=== PATIENT | male | born 1950 | race African-American/Black ===

== ENCOUNTER → 2017-08-04 | Outpatient (CLI) | payer MEDICARE | LOC: OD 11:40 | PROVIDERS: ATTEND Urology | DX: Z53.9 Procedure and treatment not carried out, unspecified reason (principal) ==

== ENCOUNTER 2017-11-05 15:01 | Emergency (ER) | payer MEDICARE ==
--- NOTE | 2017-11-05 17:01 | ER Document Report ---
ED GI/ - General Chief Complaint: Problem with Urinary Catheter Stated Complaint: CATHETER ISSUES Time Seen by Provider: 11/05/17 16:50 Mode of Arrival: Ambulatory Information source: Patient TRAVEL OUTSIDE OF THE [place] IN LAST 30 DAYS: No - HPI Patient complains to provider of: Other - Urinary leg bag leaking Onset: Just prior to arrival Notes: 11/05/17 16:57 Patient arrives with complaints of urinary bag leaking. The patient has bilateral nephrostomy tubes which she has had for several months. States that the left bag is leaking where the tube enters the bag at the top. He denies any fevers. He denies any pain. He denies any abdominal pain. He denies any nausea, vomiting, diarrhea. No chest pain or shortness of breath. No rash. He has no other complaints other than needing the bags were placed. - Related Data Allergies/Adverse Reactions: procaine [From Novocain] Adverse Reaction (Verified 11/05/17 15:05) Past Medical History - Social History Smoking Status: Unknown if Ever Smoked Family History: Reviewed & Not Pertinent - Past Medical History Cardiac Medical History: Reports: Hx Hypertension Renal/ Medical History: Denies: Hx Peritoneal Dialysis Review of Systems - Review of Systems -: Yes All other systems reviewed and negative Physical Exam - Vital signs Vitals: Temp Pulse Resp BP Pulse Ox 98.0 F 58 L 15 116/55 L 100 11/05/17 15:20 11/05/17 15:20 11/05/17 15:20 11/05/17 15:20 11/05/17 15:20 - Notes Notes: GENERAL: alert, cooperative, nontoxic, no distress. HEAD: normocephalic, atraumatic EYES: conjunctiva pink without discharge, no external redness or swelling. EARS: no external swelling, no external redness NOSE: atraumatic, no external swelling MOUTH/THROAT: mucous membranes moist and pink, posterior pharynx without erythema, swelling, exudate. No trismus or drooling. NECK: soft, supple, full range of motion, no meningismus. CHEST: no distress, lungs clear and equal throughout. No wheezing, rales, rhonchi. CARDIAC: regular rate and rhythm, no murmur, normal capillary refill, normal pulses. No peripheral edema noted. ABDOMEN: Soft, nontender. BACK: full range of motion, no CVA tenderness. Bilateral nephrostomy tubes without erythema around the insertion sites. No tenderness. No drainage. EXTREMITIES: full range of motion of all extremities. No redness, no swelling. NEURO: alert and oriented x 3, no focal deficits, full range of motion of all extremities. PYSCH: appropriate mood, affect. Patient is cooperative. SKIN: pink, warm, dry, no rash. : The left nephrostomy tube is noted to be leaking where the tubing leading from the not nephrostomy tube hookup to the leg bag itself is cracked. Course - Re-evaluation Re-evalutation: 11/05/17 17:25 Patient is nontoxic appearing with stable vitals. The patient arrives with nephrostomy tube leg bag that is leaking. We are able to replace his nephrostomy tube leg bag with a new leg bag. We instructed him that this is a temporary measure as we do not have the exact leg bag with the same connection he has that connects at the nephrostomy tube itself, but were able to give him a new bag that was secured to at [facility] The patient's emergency department workup and current diagnosis were explained to the patient and or family. He was instructed to follow-up with his magazine journalist at the next available appointment that he should follow-up sooner for fever, redness, pain, leaking, any further concerns. St prevent it from leaking until he can see his magazine journalist to obtain the right bag. Again the patient is nontoxic with no signs of infection. His nephrostomy tube sites look well. Follow-up instructions were provided. Medications if prescribed were discussed. Instructions for when to return to the emergency department including specific worrisome symptoms were discussed with the patient and/or family. Patient will be discharged home at this time. - Vital Signs Vital signs: Temp Pulse Resp BP Pulse Ox 98.0 F 58 L 15 116/55 L 100 11/05/17 15:20 11/05/17 15:20 11/05/17 15:20 11/05/17 15:20 11/05/17 15:20 Discharge - Discharge Clinical Impression: Urinary catheter (Hook) change required Condition: Stable Disposition: HOME, SELF-CARE Instructions: Hook Catheter Care ([facility]) Additional Instructions: Follow-up with your magazine journalist at the next available appointment. Follow-up sooner for leaking, fever, redness or pain around your insertion sites, any further concerns. Forms: Smoking Cessation Education
[2017-11-05 17:38] VITALS: BP 145/63
== END 2017-11-05 17:35 | disposition home or self-care (01) ==
LOC: ER 15:01
DX: T83.9XXA Unspecified complication of genitourinary prosthetic device, implant and graft, initial encounter (principal)
CPT/HCPCS: 99282

== ENCOUNTER 2017-11-11 18:32 | Observation (INO) | payer MEDICARE, MEDICAID ==
[2017-11-11] MEDS ORDERED: LIDOCAINE 1% INJ-PF (10 MG/ML) 30 ML SDV INJ ONE (19:59)
--- NOTE | 2017-11-11 19:59 | ER Document Report ---
ED Medical Screen (RME) - General Chief Complaint: Syncope Stated Complaint: SYNCOPAL EPISODE/HEAD INJURY Time Seen by Provider: 11/11/17 19:56 Mode of Arrival: Wheelchair Information source: Patient Notes: Patient states that he was standing up, got hot and then had a syncopal episode. Patient reports that he hit his head on the counter in his ribs on the floor. Syncopal episode was witnessed by family. Patient complains of dyspnea and pain with inspiration since the fall. Patient was laceration to right brow area. Patient reports last tetanus immunization was 4 years ago. Patient is currently receiving chemotherapy for prostate cancer. hx: Hypertension, prostate cancer I have greeted and performed a rapid initial assessment of this patient. A comprehensive ED assessment and evaluation of the patient, analysis of test results and completion of the medical decision making process will be conducted by additional ED providers. TRAVEL OUTSIDE OF THE [place] IN LAST 30 DAYS: No - Related Data Allergies/Adverse Reactions: procaine [From Novocain] Adverse Reaction (Verified 11/11/17 18:35) Past Medical History - Past Medical History Cardiac Medical History: Reports: Hx Hypertension Renal/ Medical History: Denies: Hx Peritoneal Dialysis Physical Exam - Vital signs Vitals: Temp Pulse Resp BP Pulse Ox 97.6 F 66 20 125/71 100 11/11/17 18:39 11/11/17 18:39 11/11/17 18:39 11/11/17 18:39 11/11/17 18:39 - Neurological Neuro grossly intact: Yes [place] Coma Scale Eye Opening: Spontaneous [place] Coma Scale Verbal: Oriented [place] Coma Scale Motor: Obeys Commands [place] Coma Scale Total: 15 - Skin Skin irregularity: Laceration - Right brow Course - Vital Signs Vital signs: Temp Pulse Resp BP Pulse Ox 97.6 F 66 20 125/71 100 11/11/17 18:39 11/11/17 18:39 11/11/17 18:39 11/11/17 18:39 11/11/17 18:39
--- NOTE | 2017-11-11 20:43 | RADIOLOGY REPORT (SQ) ---
EXAM DESCRIPTION: CT HEAD WITHOUT COMPLETED DATE/TIME: 11/11/2017 8:35 pm REASON FOR STUDY: syncope, GALEANA, facial lac r brow COMPARISON: None. TECHNIQUE: Axial images acquired through the brain without intravenous contrast. Images reviewed wi th bone, brain and subdural windows. Images stored on PACS. All CT scanners at this facility use dose modulation, iterative reconstruction, and/or weight based d osing when appropriate to reduce radiation dose to as low as reasonably achievable (ALARA). [facility]: Dose Right [facility]: CareDose [facility]: Dose Right [facility]: Teradose 4D [facility]: [employer] RADIATION DOSE: CT Rad equipment meets quality standard of care and radiation dose reduction techniq ues were employed. CTDIvol: 64.6 mGy. DLP: 1034 mGy-cm. mGy. LIMITATIONS: None. FINDINGS: VENTRICLES: Normal size and contour. CEREBRUM: No masses. No hemorrhage. No midline shift. No evidence for acute infarction. Normal gra y/white matter differentiation. No areas of low density in the white matter. CEREBELLUM: No masses. No hemorrhage. No alteration of density. No evidence for acute infarction. EXTRAAXIAL SPACES: No fluid collections. No masses. ORBITS AND GLOBE: No intra- or extraconal masses. Normal contour of globe without masses. CALVARIUM: No fracture. PARANASAL SINUSES: No fluid or mucosal thickening. SOFT TISSUES: No mass or hematoma. OTHER: No other significant finding. IMPRESSION: NORMAL BRAIN CT WITHOUT CONTRAST. EVIDENCE OF ACUTE STROKE: NO. COMMENT: Quality ID # 436: Final reports with documentation of one or more dose reduction techniques (e.g., Automated exposure control, adjustment of the mA and/or kV according to patient size, use of iterative reconstruction technique) TECHNICAL DOCUMENTATION: JOB ID: [id number] [employer]- All Rights Reserved
--- NOTE | 2017-11-11 21:04 | RADIOLOGY REPORT (SQ) ---
EXAM DESCRIPTION: CHEST PA/LAT COMPLETED DATE/TIME: 11/11/2017 8:39 pm REASON FOR STUDY: syncope, L lower rib pain COMPARISON: 2013. TECHNIQUE: Frontal and lateral radiographic views of the chest acquired. NUMBER OF VIEWS: Two view. LIMITATIONS: None. FINDINGS: LUNGS AND PLEURA: Lungs generally slightly hyperinflated but otherwise clear. MEDIASTINUM AND HILAR STRUCTURES: No masses or contour abnormalities. HEART AND VASCULAR STRUCTURES: Heart normal size. No evidence for failure. BONES: Increased density. Patchy areas of sclerosis. Any history of renal disease or prostate cance r? HARDWARE: None in the chest. OTHER: No other significant finding. IMPRESSION: Dense patchy bone sclerosis raises the possibility of renal osteodystrophy or osseous me tastatic disease. No acute cardiopulmonary disease. TECHNICAL DOCUMENTATION: JOB ID: [id number] [employer]- All Rights Reserved
[2017-11-11 21:07] LABS: ABSOLUTE BASOPHILS # (AUTO) 0.1 10^3/uL (0.0-0.2); ABSOLUTE LYMPHOCYTES (AUTO) 1.2 10^3/uL (0.5-4.7); ABSOLUTE MONOCYTES (AUTO) 0.1 10^3/uL (0.1-1.4); ABSOLUTE NEUT (AUTO) 3.7 10^3/uL (1.7-8.2); BASOPHILS % (AUTO) 1.1 % (0-2); EOSINOPHILS % (AUTO) 0.2 % (0-6); HEMATOCRIT 33.6 % (37.9-51.0); HEMOGLOBIN 11.1 g/dL (13.5-17.0); LYMPHOCYTES % (AUTO) 24.4 % (13-45); MEAN CORPUSCULAR HEMOGLOBIN 27.3 pg (27.0-33.4); MEAN CORPUSCULAR HGB CONC 32.9 g/dL (32.0-36.0); MEAN CORPUSCULAR VOLUME 83 fl (80-97); MONOCYTES % (AUTO) 1.5 % (3-13); PLATELET COUNT 252 10^3/uL (150-450); RED BLOOD COUNT 4.05 10^6/uL (4.35-5.55); RED CELL DISTRIBUTION WIDTH 16.9 % (11.5-14.0); SEGMENTED NEUTROPHILS % (AUTO) 72.8 % (42-78); TOTAL CELLS COUNTED % (AUTO) 100 %; WHITE BLOOD COUNT 5.1 10^3/uL (4.0-10.5)
--- NOTE | 2017-11-11 21:09 | ER Document Report ---
ED General - General Chief Complaint: Syncope Stated Complaint: SYNCOPAL EPISODE/HEAD INJURY Time Seen by Provider: 11/11/17 19:56 Mode of Arrival: Wheelchair Information source: Patient Notes: This is a 67-year-old man with a history of prostate cancer, obstructive uropathy with bilateral nephrostomy tubes who is his normal state today when he came home. He states he was making coffee, stood up he had a syncopal episode. Patient hit his head and fell on his left side. He presents with a laceration over the right eye as well as left chest wall pain. This episode was observed by his family. They denied any seizure-like activity to EMS. The patient denied any preceding chest pain, shortness of breath, nausea vomiting. Currently in the emergency room, the myers complains of pain to the left ribs. He denies ever having passed out in the past. He states that he felt good today and he was riding his moped to his brother's house. He denies having any pain medicine for the past 2 days (he states he did not need it). He denies any alcohol use. Primary CARE physician: Ora Oliveira Oncologist: Dr. Thacker Urologist: [facility] TRAVEL OUTSIDE OF THE [place] IN LAST 30 DAYS: No - HPI Onset: Just prior to arrival Onset/Duration: Sudden Quality of pain: Dull Severity: Moderate Pain Level: 3 Associated symptoms: Chest pain. denies: Fever, Shortness of breath Exacerbated by: Movement Relieved by: Denies Similar symptoms previously: No Recently seen / treated by doctor: No - Related Data Allergies/Adverse Reactions: procaine [From Novocain] Adverse Reaction (Verified 11/11/17 18:35) Past Medical History - General Information source: Patient - Social History Smoking Status: Current Every Day Smoker Cigarette use (# per day): Yes - Half pack per day Chew tobacco use (# tins/day): No Frequency of alcohol use: None Drug Abuse: Marijuana Lives with: Family Family History: Reviewed & Not Pertinent Patient has suicidal ideation: No Patient has homicidal ideation: No - Past Medical History Cardiac Medical History: Reports: Hx Hypertension Renal/ Medical History: Denies: Hx Peritoneal Dialysis Past Surgical History: Reports: Other - Bilateral nephrostomy tubes Review of Systems - Review of Systems Constitutional: denies: Chills, Fever EENT: No symptoms reported Cardiovascular: See HPI, Syncope Respiratory: No symptoms reported Gastrointestinal: No symptoms reported Genitourinary: No symptoms reported Male Genitourinary: No symptoms reported Musculoskeletal: See HPI Skin: No symptoms reported Hematologic/Lymphatic: No symptoms reported Neurological/Psychological: No symptoms reported. denies: Confusion, Seizure, Speech impairment, Numbness Physical Exam - Vital signs Vitals: Temp Pulse Resp BP Pulse Ox 97.6 F 66 20 125/71 100 11/11/17 18:39 11/11/17 18:39 11/11/17 18:39 11/11/17 18:39 11/11/17 18:39 Notes: Physical exam: GENERAL: 67-year-old man, alert and oriented 3. He does have left chest wall pain to palpation. He does have a laceration over the right eye HEAD: Centimeter laceration above the right eyebrow. EYES: Pupils equal round and reactive to light, extraocular movements intact, sclera anicteric, conjunctiva are normal. ENT: TMs normal, nares patent, oropharynx clear without exudates. Moist mucous membranes. NECK: Normal range of motion, supple without obvious mass or JVD. LUNGS: Breath sounds clear to auscultation bilaterally and equal. No wheezes rales or rhonchi. Chest wall: Left rib tenderness palpation (approximately 11 or 12). No obvious flail chest. HEART: Regular rate and rhythm without murmurs, rubs or gallops. ABDOMEN: Soft, normoactive bowel sounds. No tenderness to palpation. No guarding, no rebound. No masses appreciated. Back: Bilateral nephrostomy tubes, the sites look good. EXTREMITIES: Normal range of motion, no pitting or edema. No clubbing or cyanosis. NEUROLOGICAL: Cranial nerves II through XII grossly intact. Normal speech, moving all extremities. PSYCH: Normal mood, normal affect. SKIN: Warm, Dry, normal turgor, no rashes or lesions noted. Course - Re-evaluation Re-evalutation: 11/12/17 00:49 The concern with this patient is that he has never had anything like his episode today. He is very functional and was on the moped going to his brother' s house today. He came home and stated he felt fine and had a syncopal episode while making coffee. He fell on his side hit his head and sustained a laceration to the right side of the head and required suture repair in the ER. He was diagnosed with [address] does not show any evidence of pulmonary contusion or intra-abdominal organ injury. The question is whether he had any type of tachyarrhythmia leading to a syncopal episode. The plan will be to bring the patient in for observation and further monitoring. He will require pain control and incentive spirometer for his rib fractures. - Vital Signs Vital signs: Temp Pulse Resp BP Pulse Ox 97.6 F 66 22 H 113/79 96 11/11/17 18:39 11/11/17 18:39 11/12/17 00:35 11/12/17 00:35 11/12/17 00:35 - Laboratory Result Diagrams: 11/11/17 20:58 11/11/17 20:58 Laboratory results interpreted by me: 11/11/17 11/11/17 11/11/17 20:58 20:58 23:59 RBC 4.05 L Hgb 11.1 L Hct 33.6 L RDW 16.9 H Monocytes % 1.5 L Sodium 134.6 L BUN 30 H Creatinine 2.21 H Est GFR ( Amer) 36 L Est GFR (Non-Af Amer) 30 L Urine Protein 100 H Urine Ketones TRACE H Urine Blood MODERATE H Ur Leukocyte Esterase LARGE H - Diagnostic Test Radiology reviewed: Image reviewed, Reports reviewed - CT of the chest shows rib fractures of the left 11th and 12th rib. There is no pneumothorax, no pulmonary contusion. - EKG Interpretation by Me Rate: Normal Rhythm: NSR - EKG shows normal sinus rhythm with a ventricular rate of 62, no acute ST-T wave change Procedures - Laceration/Wound Repair Right Face Time completed: 22:30 Wound length (cm): 4 Wound's Depth, Shape: Irregular Laceration pre-procedure: Sterile drapes applied, Shur-Clens applied Anesthetic type: 1% Lidocaine Volume Anesthetic (mLs): 4 Wound explored: Clean Irrigated w/ Saline (mLs): 250 Wound Debrided: Minimal Wound Repaired With: Sutures Suture Size/Type: 6:0, Nylon Number of Sutures: 4 Layer Closure?: No Post-procedure wound care: Other - Steri-Strips Post-procedure NV exam normal: Yes Complications: No Critical Care Note - Critical Care Note Total time excluding time spent on procedures (mins): 60 Discharge - Discharge Clinical Impression: Facial laceration, Head contusion status post fall, Syncope, Left rib fractures (11 and 12) Condition: Stable Disposition: ADMITTED OBSERVATION Admitting Provider: Hospitalist Unit Admitted: Telemetry
[2017-11-11 21:25] LABS: ALANINE AMINOTRANSFERASE 28 U/L (21-72); ALBUMIN 4.1 g/dL (3.5-5.0); ALKALINE PHOSPHATASE 94 U/L (38-126); ANION GAP 8 (5-19); ASPARTATE AMINO TRANSFERASE 19 U/L (17-59); BILIRUBIN,DIRECT 0.3 mg/dL (0.0-0.4); BILIRUBIN,TOTAL 0.5 mg/dL (0.2-1.3); BLOOD UREA NITROGEN 30 mg/dL (7-20); CALCIUM 9.4 mg/dL (8.4-10.2); CARBON DIOXIDE 23 mmol/L (22-30); CHLORIDE 104 mmol/L (98-107); CREATINE KINASE 143 U/L (55-170); GLUCOSE 91 mg/dL (75-110); POTASSIUM 4.9 mmol/L (3.6-5.0); SODIUM 134.6 mmol/L (137-145); TOTAL PROTEIN 6.6 g/dL (6.3-8.2)
[2017-11-11 21:28] LABS: INTERNATIONAL RATION (INR) 0.93; PROTHROMBIN TIME 13.1 SEC (11.4-15.4)
[2017-11-11 21:29] LABS: PARTIAL THROMBOPLASTIN TIME 33.2 SEC (23.5-35.8)
[2017-11-11 21:34] LABS: CREATINE KINASE MB 0.52 ng/mL (<4.55)
[2017-11-11 21:35] LABS: TROPONIN I < 0.012 ng/mL
[2017-11-11] MEDS ORDERED: ONDANSETRON HCL INJ/PF 4 MG/2 ML SDV IV ONE (21:57)
[2017-11-11] MEDS ORDERED: MORPHINE SULFATE 10 MG/ML INJ IV ONE (21:57)
[2017-11-11] MEDS ORDERED: NORMAL SALINE 1000 ML 1,000 ML IV PRN (22:26)
--- NOTE | 2017-11-11 23:21 | RADIOLOGY REPORT (SQ) ---
EXAM DESCRIPTION: CT CERVICAL SPINE WITHOUT COMPLETED DATE/TIME: 11/11/2017 10:57 pm REASON FOR STUDY: fall, head injury . History of prostate cancer. COMPARISON: None. TECHNIQUE: Axial images acquired through the cervical spine without intravenous contrast. Images re viewed with lung, soft tissue and bone windows. Reconstructed coronal and sagittal MPR images review ed. Images stored on PACS. All CT scanners at this facility use dose modulation, iterative reconstruction, and/or weight based d osing when appropriate to reduce radiation dose to as low as reasonably achievable (ALARA). [facility]: Dose Right [facility]: CareDose [facility]: Dose Right [facility]: Teradose 4D [facility]: [employer] RADIATION DOSE: CT Rad equipment meets quality standard of care and radiation dose reduction techniq ues were employed. CTDIvol: 19.2 mGy. DLP: 398 mGy-cm. mGy. LIMITATIONS: None. FINDINGS: ALIGNMENT: There is mild reversal of the cervical lordosis, this may be positional or due to muscle spasm. MINERALIZATION: There is sclerotic appearance of the vertebral bodies with lucent lesions, most consi stent with diffuse skeletal metastatic disease. VERTEBRAL BODIES: No acute fractures or dislocation. DISCS: Multilevel disc space narrowing with osteophytes. FACETS, LATERAL MASSES, POSTERIOR ELEMENTS: Facet arthropathy. No fractures. No dislocation. HARDWARE: None in the spine. VISUALIZED RIBS: No fractures. LUNG APICES AND SOFT TISSUES: Emphysematous changes at the visualized lung apices. IMPRESSION: 1. No CT evidence for acute fracture at the cervical spine. Multilevel degenerative ch anges. 2. Diffuse skeletal metastatic disease. 3. Emphysema. TECHNICAL DOCUMENTATION: JOB ID: [id number] [place]- Quality ID # 436: Final reports with documentation of one or more dose reduction techniques (e.g., Au tomated exposure control, adjustment of the mA and/or kV according to patient size, use of iterative reconstruction technique) 2010 [employer]- All Rights Reserved
--- NOTE | 2017-11-11 23:29 | RADIOLOGY REPORT (SQ) ---
EXAM DESCRIPTION: CT CHEST WITHOUT COMPLETED DATE/TIME: 11/11/2017 10:57 pm REASON FOR STUDY: left rib pain . History of prostate cancer. COMPARISON: CT abdomen and pelvis 11/11/2017. TECHNIQUE: CT scan performed of the chest without intravenous contrast. Images reviewed with lung, soft tissue and bone windows. Reconstructed coronal and sagittal MPR images reviewed. All images st ored on PACS. All CT scanners at this facility use dose modulation, iterative reconstruction, and/or weight based d osing when appropriate to reduce radiation dose to as low as reasonably achievable (ALARA). [facility]: Dose Right [facility]: CareDose [facility]: Dose Right [facility]: Teradose 4D [facility]: [employer] RADIATION DOSE: mGy. LIMITATIONS: No technical limitations. FINDINGS: LUNGS AND PLEURA: There are bilateral emphysematous changes. No consolidation, pleural ef fusion or pneumothorax. HILAR AND MEDIASTINAL STRUCTURES: No identified masses or abnormal nodes. HEART AND VASCULAR STRUCTURES: No thoracic aortic aneurysm. No pericardial effusion. Coronary arter ies calcifications are noted. UPPER ABDOMEN: See separate report of the CT of the abdomen. BONES: There is diffuse sclerotic appearance of the osseous structures with lytic areas, most consist ent with diffuse skeletal metastases. Minimally displaced fractures at the posterior left 11th and 1 2th ribs. HARDWARE: Left-sided central line with the tip at the SVC. IMPRESSION: 1. Minimally displaced fractures at the posterior left 11th and 12th ribs. No pneumotho rax. 2. Emphysema. 3. Diffuse skeletal metastases. TECHNICAL DOCUMENTATION: JOB ID: [id number] [place]- Quality ID # 436: Final reports with documentation of one or more dose reduction techniques (e.g., Au tomated exposure control, adjustment of the mA and/or kV according to patient size, use of iterative reconstruction technique) 2010 [employer]- All Rights Reserved
--- NOTE | 2017-11-11 23:40 | RADIOLOGY REPORT (SQ) ---
EXAM DESCRIPTION: CT ABD/PELVIS NO ORAL OR IV COMPLETED DATE/TIME: 11/11/2017 10:57 pm REASON FOR STUDY: left rib pain p fall, prostate CA w/ b/l nephros COMPARISON: Noncontrast CT chest 11/11/2017. TECHNIQUE: CT scan of the abdomen and pelvis performed without intravenous or oral contrast. Images reviewed with lung, soft tissue, and bone windows. Reconstructed coronal and sagittal MPR images revi ewed. All images stored on PACS. All CT scanners at this facility use dose modulation, iterative reconstruction, and/or weight based d osing when appropriate to reduce radiation dose to as low as reasonably achievable (ALARA). [facility]: Dose Right [facility]: CareDose [facility]: Dose Right [facility]: Teradose 4D [facility]: [employer] RADIATION DOSE: CT Rad equipment meets quality standard of care and radiation dose reduction techniq ues were employed. CTDIvol: 4.9 mGy. DLP: 334 mGy-cm.mGy. LIMITATIONS: None. FINDINGS: LOWER CHEST: See separate report of the CT of the chest. NON-CONTRASTED LIVER, SPLEEN, ADRENALS: Evaluation limited by lack of IV contrast. Small calcificati on at the liver, may represent a granuloma. PANCREAS: No peripancreatic inflammatory changes. GALLBLADDER: Calcified stones are seen at the gallbladder RIGHT KIDNEY AND URETER: Assessment for masses limited by lack of IV contrast. No significant calci fications. No hydronephrosis or hydroureter. Nephrostomy tube present LEFT KIDNEY AND URETER: Assessment for masses limited by lack of IV contrast. Cortical 1.9 cm fluid attenuation lesion at the left kidney, may represent a cyst. No significant calcifications. No hyd ronephrosis or hydroureter. Nephrostomy tube present. AORTA AND RETROPERITONEUM: No abdominal aortic aneurysm. No retroperitoneal masses or adenopathy. BOWEL AND PERITONEAL CAVITY: No dilated bowel loops or inflammatory changes. No free fluid or free ai r. APPENDIX: Not visualized. PELVIS, BLADDER, AND ABDOMINAL WALL:The urinary bladder is partially distended. Lobulated soft tissu e density seen at the base of the urinary bladder. The prostate measures 3.8 cm in transverse diamet er. No free fluid. There is a small fat containing umbilical hernia. BONES: Minimally displaced fractures at the posterior left 11th and 12th ribs. Diffuse sclerotic and lytic appearance of the osseous structures, most consistent with of skeletal metastases. Multilevel degenerative changes are seen in the spine. The vertebral body heights are maintained. IMPRESSION: 1. Minimally displaced fractures at the posterior left 11th and 12th ribs. Otherwise, acute posttraumatic findings in the abdomen or pelvis on unenhanced CT. 2. Lobulated soft tissue density at the base of the urinary bladder, worrisome for neoplasm. Correla tion with recent cystoscopy recommended. 3. Bilateral nephrostomy tubes. 4. Cholelithiasis. 5. Diffuse skeletal metastasis. COMMENT: Quality ID # 436: Final reports with documentation of one or more dose reduction techniques (e.g., Automated exposure control, adjustment of the mA and/or kV according to patient size, use of iterative reconstruction technique) TECHNICAL DOCUMENTATION: JOB ID: [id number] 2010 [employer]- All Rights Reserved
[2017-11-12 00:29] LABS: APPEARANCE,URINE SLIGHTLY-CLOUDY; BILIRUBIN,URINE NEGATIVE (NEGATIVE); COLOR,URINE YELLOW; GLUCOSE, URINE NEGATIVE (NEGATIVE); KETONES,URINE TRACE mg/dL (NEGATIVE); LEUKOCYTE ESTERASE,URINE LARGE (NEGATIVE); NITRITE,URINE NEGATIVE (NEGATIVE); PROTEIN,URINE 100 mg/dL (NEGATIVE); URINE SPECIFIC GRAVITY 1.012; UROBILINOGEN,URINE NEGATIVE mg/dL (<2.0)
[2017-11-12] MEDS ORDERED: MAG HYDROX/AL HYDROX/SIMETH SUSP 30 ML UDCUP PO PRN (00:52)
[2017-11-12] MEDS ORDERED: IPRATROPIUM/ALBUTEROL 0.5-2.5 MG/3 ML AMPUL NEB PRN (00:52)
[2017-11-12] MEDS ORDERED: ACETAMINOPHEN 325 MG TABLET PO PRN (00:52)
[2017-11-12] MEDS ORDERED: OXYCODONE HCL IR 5 MG TABLET PO PRN (00:57)
[2017-11-12] MEDS ORDERED: NORMAL SALINE 1000 ML 1,000 ML IV SCH (01:00)
[2017-11-12 01:58] LABS: URINE AMPHETAMINES SCREEN NEGATIVE; URINE BARBITURATES SCREEN NEGATIVE; URINE BENZODIAZEPINES SCREEN NEGATIVE; URINE COCAINE SCREEN NEGATIVE; URINE METHADONE SCREEN NEGATIVE; URINE PHENCYCLIDINE SCREEN NEGATIVE
[2017-11-12 02:03] LABS: URINE MARIJUANA (THC) SCREEN UNCONFIRMED POSITIVE
[2017-11-12] MEDS: HEPARIN SOD (PORCINE) 5,000 UNIT/ML 1 ML SYRINGE SUBCUT SCH ×3 (05:44→22:51)
--- NOTE | 2017-11-12 05:47 | PDOC H&P ---
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 Patient presents after a witnessed syncopal episode. Patient was standing in the kitchen counter reaching into a cabinet when he was witnessed by his daughter to lose consciousness strike his head on the countertop and fall to the floor. There is no limb shaking, vomiting or incontinence. Patient was revived after several seconds without confusion or deficit. He is found to have 1/2 cm laceration to the right brow requiring Steri-Strips. CT head is unremarkable, CT chest reveals left sided nondisplaced, posterior thoracic fractures of ribs 11 and 12. Patient denies previous episode though admits taking Flomax in addition to an increased dose of oxycodone prior to the event. His workup otherwise shows acute on chronic renal failure and is referred to the hospitalist for admission. Past Medical History Cardiac Medical History: Reports: Hypertension Pulmonary Medical History: Reports: Chronic Obstructive Pulmonary Disease (COPD) Renal/ Medical History: Reports: Chronic Kidney Disease Psychiatric Medical History: Reports: Substance Abuse, Tobacco Dependency Past Surgical History Past Surgical History: Reports: Other - Bilateral nephrostomy tubes Social History Information Source: Patient, Relative, [facility] Records Lives with: Family Smoking Status: Current Every Day Smoker Frequency of Alcohol Use: None Drugs: Marijuana - Advance Directive Resuscitation Status: Full Code Family History Family History: Hypertension, Malignancy Parental Family History Reviewed: Yes Children Family History Reviewed: Yes Sibling(s) Family History Reviewed.: Yes Medication/Allergy Home Medications: Azithromycin [Zithromax 250 mg Tablet] 250 mg PO ASDIR PRN #4 tablet 09/28/14 Allergies/Adverse Reactions: procaine [From Novocain] Adverse Reaction (Verified 11/11/17 18:35) Review of Systems Constitutional: PRESENT: fatigue. ABSENT: chills, fever(s), headache(s), weight gain, weight loss Eyes: ABSENT: visual disturbances Ears: ABSENT: hearing changes Cardiovascular: ABSENT: chest pain, dyspnea on exertion, edema, orthropnea, palpitations Respiratory: ABSENT: cough, hemoptysis Gastrointestinal: ABSENT: abdominal pain, constipation, diarrhea, hematemesis, hematochezia, nausea, vomiting Genitourinary: ABSENT: dysuria, hematuria Musculoskeletal: ABSENT: joint swelling Integumentary: ABSENT: rash, wounds Neurological: ABSENT: abnormal gait, abnormal speech, confusion, dizziness, focal weakness, syncope Psychiatric: ABSENT: anxiety, depression, homidical ideation, suicidal ideation Endocrine: ABSENT: cold intolerance, heat intolerance, polydipsia, polyuria Hematologic/Lymphatic: ABSENT: easy bleeding, easy bruising Physical Exam Vital Signs: Temp Pulse Resp BP Pulse Ox 97.6 F 90 33 H 115/67 92 11/11/17 18:39 11/12/17 00:56 11/12/17 05:03 11/12/17 05:03 11/12/17 05:03 Intake & Output 11/10/17 11/11/17 11/12/17 11:59 11:59 11:59 Output Total 250 Balance -250 General appearance: PRESENT: no acute distress, well-developed, well-nourished Head exam: PRESENT: atraumatic, normocephalic Eye exam: PRESENT: conjunctiva pink, EOMI, PERRLA. ABSENT: scleral icterus Ear exam: PRESENT: normal external ear exam Mouth exam: PRESENT: moist, tongue midline Neck exam: ABSENT: carotid bruit, JVD, lymphadenopathy, thyromegaly Respiratory exam: PRESENT: clear to auscultation darrel. ABSENT: rales, rhonchi, wheezes Cardiovascular exam: PRESENT: RRR. ABSENT: diastolic murmur, rubs, systolic murmur Pulses: PRESENT: normal dorsalis pedis pul Vascular exam: PRESENT: normal capillary refill GI/Abdominal exam: PRESENT: normal bowel sounds, soft. ABSENT: distended, guarding, mass, organolmegaly, rebound, tenderness Rectal exam: PRESENT: deferred Extremities exam: PRESENT: full ROM. ABSENT: calf tenderness, clubbing, pedal edema Neurological exam: PRESENT: alert, awake, oriented to person, oriented to place , oriented to time, oriented to situation, CN II-XII grossly intact. ABSENT: motor sensory deficit Psychiatric exam: PRESENT: appropriate affect, normal mood. ABSENT: homicidal ideation, suicidal ideation Skin exam: PRESENT: dry, intact, warm. ABSENT: cyanosis, rash Results Impressions: Chest X-Ray 11/11/17 19:57 IMPRESSION: Dense patchy bone sclerosis raises the possibility of renal osteodystrophy or osseous metastatic disease. No acute cardiopulmonary disease. Head CT 11/11/17 19:57 IMPRESSION: NORMAL BRAIN CT WITHOUT CONTRAST. EVIDENCE OF ACUTE STROKE: NO. Abdomen/Pelvis CT 11/11/17 22:28 IMPRESSION: 1. Minimally displaced fractures at the posterior left 11th and 12th ribs. Otherwise, acute posttraumatic findings in the abdomen or pelvis on unenhanced CT. 2. Lobulated soft tissue density at the base of the urinary bladder, worrisome for neoplasm. Correlation with recent cystoscopy recommended. 3. Bilateral nephrostomy tubes. 4. Cholelithiasis. 5. Diffuse skeletal metastasis. Cervical Spine CT 11/11/17 22:28 IMPRESSION: 1. No CT evidence for acute fracture at the cervical spine. Multilevel degenerative changes. 2. Diffuse skeletal metastatic disease. 3. Emphysema. Chest CT 11/11/17 22:28 IMPRESSION: 1. Minimally displaced fractures at the posterior left 11th and 12th ribs. No pneumothorax. 2. Emphysema. 3. Diffuse skeletal metastases. Assessment & Plan - Diagnosis (1) Syncope Is this a current diagnosis for this admission?: Yes Plan: Patient is found orthostatic, given history of Flomax, increased dose of OxyContin and marijuana. He will be observed on a monitored bed with education and counseling. IV fluid challenge, JUAN stockings and physical therapy evaluation (2) Polypharmacy Is this a current diagnosis for this admission?: Yes Plan: Education for Flomax dosing at night, avoiding concurrent use of narcotics and recreational drugs. (3) Orthostatic hypotension Is this a current diagnosis for this admission?: Yes Plan: Multifactorial secondary to polypharmacy and deconditioning. IV fluid challenge , JUAN stockings, education for avoidance of rapid change of posture and reevaluation (4) Rib fracture Is this a current diagnosis for this admission?: Yes Plan: Patient appears asymptomatic from this, supportive care (5) Acute kidney injury superimposed on chronic kidney disease Is this a current diagnosis for this admission?: Yes Plan: IV fluid challenge, avoid nephrotoxic meds and doses reevaluate chemistry. - Time Time Spent: 50 to 70 Minutes - Inpatient Certification Medical Necessity: Need Close Monitoring Due to Risk of Patient Decompensation
[2017-11-12 06:26] LABS: ANION GAP 7 (5-19); BLOOD UREA NITROGEN 29 mg/dL (7-20); CALCIUM 8.7 mg/dL (8.4-10.2); CARBON DIOXIDE 24 mmol/L (22-30); CHLORIDE 109 mmol/L (98-107); GLUCOSE 116 mg/dL (75-110); POTASSIUM 4.6 mmol/L (3.6-5.0); SODIUM 139.5 mmol/L (137-145)
[2017-11-12 06:35] LABS: ABSOLUTE MONOCYTES (AUTO) 0.1 10^3/uL (0.1-1.4); ABSOLUTE NEUT (AUTO) 1.5 10^3/uL (1.7-8.2); BASOPHILS % (AUTO) 0.1 % (0-2); EOSINOPHILS % (AUTO) 0.5 % (0-6); HEMATOCRIT 36.2 % (37.9-51.0); HEMOGLOBIN 11.7 g/dL (13.5-17.0); LYMPHOCYTES % (AUTO) 38.2 % (13-45); MEAN CORPUSCULAR HEMOGLOBIN 26.9 pg (27.0-33.4); MEAN CORPUSCULAR HGB CONC 32.3 g/dL (32.0-36.0); MEAN CORPUSCULAR VOLUME 83 fl (80-97); MONOCYTES % (AUTO) 2.9 % (3-13); PLATELET COUNT 190 10^3/uL (150-450); RED BLOOD COUNT 4.35 10^6/uL (4.35-5.55); RED CELL DISTRIBUTION WIDTH 16.9 % (11.5-14.0); SEGMENTED NEUTROPHILS % (AUTO) 58.3 % (42-78); TOTAL CELLS COUNTED % (AUTO) 100 %
[2017-11-12 06:40] LABS: WHITE BLOOD COUNT 2.5 10^3/uL (4.0-10.5)
--- NOTE | 2017-11-12 08:14 | EKG REPORT ---
SEVERITY:- NORMAL ECG - SINUS RHYTHM : Confirmed by: Ignacio Kaufman MD 12-Nov-2017 08:13:13
[2017-11-12] MEDS: IPRATROPIUM/ALBUTEROL 0.5-2.5 MG/3 ML AMPUL NEB SCH ×2 (08:26→16:34)
[2017-11-12] MEDS: DOCUSATE SODIUM 100 MG CAPSULE PO SCH ×2 (10:10→16:44)
[2017-11-12] MEDS: MORPHINE SULFATE 10 MG/ML INJ IV PRN ×2 (10:23→22:53)
[2017-11-12] MEDS ORDERED: PREDNISONE 5 MG TABLET PO ONE ×2 (15:00→16:30)
[2017-11-12] MEDS ORDERED: LANSOPRAZOLE 30 MG TAB.RAP.DR PO ONE (15:30)
[2017-11-12] MEDS ORDERED: LIDOCAINE 5% (700 MG) TRANSDERMAL ADH..PATCH TP ONE ×2 (15:30→17:00)
[2017-11-12] MEDS: NORMAL SALINE 1000 ML 1,000 ML IV PRN (16:44)
--- NOTE | 2017-11-12 18:51 | PDOC PROGRESS REPORT ---
Subjective Progress Note for:: 11/12/17 Subjective:: Patient is seen on rounds. He is resting comfortably in bed. He is a 2 cm Steri-Strip laceration above the right eyebrow. Denies any headache, or dizziness. He states he was slightly dizzy when he first got up this morning but that has improved. He denies any chest pain, shortness of breath or dyspnea. He denies any nausea, vomiting or diarrhea. He denies any fever chills. Review of systems are negative Reason For Visit: SYNCOPE, ARF, RIB FX, PROSTATE CA W BONE METS Physical Exam Vital Signs: Temp Pulse Resp BP Pulse Ox 98.3 F 68 16 143/67 H 93 11/12/17 15:36 11/12/17 16:34 11/12/17 16:34 11/12/17 15:36 11/12/17 15:36 Intake & Output 11/11/17 11/12/17 11/13/17 06:59 06:59 06:59 Output Total 250 Balance -250 Weight 65.9 kg General appearance: PRESENT: no acute distress, thin, well-developed, well- nourished Head exam: PRESENT: normocephalic, other - 2 cm Steri-Strip laceration above the right eye Eye exam: PRESENT: conjunctiva pink, EOMI, PERRLA. ABSENT: scleral icterus Ear exam: PRESENT: normal external ear exam Mouth exam: PRESENT: moist, tongue midline Neck exam: ABSENT: carotid bruit, JVD, lymphadenopathy, thyromegaly Respiratory exam: PRESENT: clear to auscultation darrel. ABSENT: rales, rhonchi, wheezes Cardiovascular exam: PRESENT: RRR. ABSENT: diastolic murmur, rubs, systolic murmur Pulses: PRESENT: normal dorsalis pedis pul Vascular exam: PRESENT: normal capillary refill GI/Abdominal exam: PRESENT: normal bowel sounds, soft. ABSENT: distended, guarding, mass, organolmegaly, rebound, tenderness Rectal exam: PRESENT: deferred Extremities exam: PRESENT: full ROM. ABSENT: calf tenderness, clubbing, pedal edema Neurological exam: PRESENT: alert, awake, oriented to person, oriented to place , oriented to time, oriented to situation, CN II-XII grossly intact. ABSENT: motor sensory deficit Psychiatric exam: PRESENT: appropriate affect, normal mood. ABSENT: homicidal ideation, suicidal ideation Skin exam: PRESENT: dry, intact, warm. ABSENT: cyanosis, rash Results Laboratory Results: 11/12/17 05:50 11/12/17 05:50 11/12/17 11/12/17 05:50 05:50 WBC 2.5 L D RBC 4.35 Hgb 11.7 L Hct 36.2 L MCV 83 MCH 26.9 L MCHC 32.3 RDW 16.9 H Plt Count 190 Seg Neutrophils % 58.3 Lymphocytes % 38.2 Monocytes % 2.9 L Eosinophils % 0.5 Basophils % 0.1 Absolute Neutrophils 1.5 L Absolute Lymphocytes 1.0 Absolute Monocytes 0.1 Absolute Eosinophils 0.0 Absolute Basophils 0.0 Sodium 139.5 Potassium 4.6 Chloride 109 H Carbon Dioxide 24 Anion Gap 7 BUN 29 H Creatinine 2.06 H Est GFR ( Amer) 39 L Est GFR (Non-Af Amer) 32 L Glucose 116 H Calcium 8.7 Impressions: Chest X-Ray 11/11/17 19:57 IMPRESSION: Dense patchy bone sclerosis raises the possibility of renal osteodystrophy or osseous metastatic disease. No acute cardiopulmonary disease. Head CT 11/11/17 19:57 IMPRESSION: NORMAL BRAIN CT WITHOUT CONTRAST. EVIDENCE OF ACUTE STROKE: NO. Abdomen/Pelvis CT 11/11/17 22:28 IMPRESSION: 1. Minimally displaced fractures at the posterior left 11th and 12th ribs. Otherwise, acute posttraumatic findings in the abdomen or pelvis on unenhanced CT. 2. Lobulated soft tissue density at the base of the urinary bladder, worrisome for neoplasm. Correlation with recent cystoscopy recommended. 3. Bilateral nephrostomy tubes. 4. Cholelithiasis. 5. Diffuse skeletal metastasis. Cervical Spine CT 11/11/17 22:28 IMPRESSION: 1. No CT evidence for acute fracture at the cervical spine. Multilevel degenerative changes. 2. Diffuse skeletal metastatic disease. 3. Emphysema. Chest CT 11/11/17 22:28 IMPRESSION: 1. Minimally displaced fractures at the posterior left 11th and 12th ribs. No pneumothorax. 2. Emphysema. 3. Diffuse skeletal metastases. Assessment & Plan - Diagnosis (1) Acute kidney injury superimposed on chronic kidney disease Is this a current diagnosis for this admission?: Yes Plan: Creatinine is improved from admission. He still appears dry. We will continue IV hydration until the morning. (2) Orthostatic hypotension Is this a current diagnosis for this admission?: Yes Plan: Continue orthostatic vital signs every shift until normal (3) Polypharmacy Is this a current diagnosis for this admission?: Yes Plan: He has nephrostomy tubes will hold Flomax for now. That was recently started and his oxycodone was increased (4) Rib fracture Qualifiers: Encounter type: initial encounter Is this a current diagnosis for this admission?: Yes Plan: He is left 11th and 12th rib fractures from his fall. Discussed With him the importance of pain control and using incentive spirometry. (5) Syncope Is this a current diagnosis for this admission?: Yes - Time Time Spent with patient: 25-34 minutes Total Critical Time (Minutes): 20 Medications reviewed and adjusted accordingly: Yes Anticipated discharge: Home
[2017-11-12] MEDS ORDERED: TAMSULOSIN HCL 0.4 MG CAP.SR.24H PO SCH (22:00)
[2017-11-13] MEDS: IPRATROPIUM/ALBUTEROL 0.5-2.5 MG/3 ML AMPUL NEB SCH ×3 (00:04→16:18)
[2017-11-13 04:03] LABS: HEMATOCRIT 26.2 % (37.9-51.0); MEAN CORPUSCULAR HEMOGLOBIN 27.6 pg (27.0-33.4); MEAN CORPUSCULAR HGB CONC 33.4 g/dL (32.0-36.0); MEAN CORPUSCULAR VOLUME 83 fl (80-97); PLATELET COUNT 199 10^3/uL (150-450); RED BLOOD COUNT 3.17 10^6/uL (4.35-5.55); RED CELL DISTRIBUTION WIDTH 16.7 % (11.5-14.0)
[2017-11-13 04:13] LABS: HEMOGLOBIN 8.7 g/dL (13.5-17.0)
[2017-11-13 04:28] LABS: ABSOLUTE LYMPHOCYTES# (MANUAL) 0.8 10^3/uL (0.5-4.7); ABSOLUTE MONOCYTES # (MANUAL) 0.1 10^3/uL (0.1-1.4); ABSOLUTE NEUTROPHILS# (MANUAL) 0.8 10^3/uL (1.7-8.2); BASOPHILS % (MANUAL) 1 % (0-2); EOSINOPHILS % (MANUAL) 1 % (0-6); LYMPHOCYTES % (MANUAL) 47 % (13-45); MONOCYTES % (MANUAL) 7 % (3-13); SEGMENTED NEUTROPHILS % (MAN) 44 % (42-78); TOTAL CELLS COUNTED 100
[2017-11-13 04:29] LABS: ANISOCYTOSIS 1+; PLATELET COMMENT ADEQUATE
[2017-11-13 04:30] LABS: WHITE BLOOD COUNT 1.8 10^3/uL (4.0-10.5)
[2017-11-13 04:52] LABS: ANION GAP 6 (5-19); BLOOD UREA NITROGEN 24 mg/dL (7-20); CALCIUM 8.3 mg/dL (8.4-10.2); CARBON DIOXIDE 21 mmol/L (22-30); CHLORIDE 111 mmol/L (98-107); CREATINE KINASE 218 U/L (55-170); GLUCOSE 94 mg/dL (75-110); POTASSIUM 5.1 mmol/L (3.6-5.0); SODIUM 137.9 mmol/L (137-145)
[2017-11-13] MEDS: LANSOPRAZOLE 30 MG TAB.RAP.DR PO SCH (05:52)
[2017-11-13] MEDS: HEPARIN SOD (PORCINE) 5,000 UNIT/ML 1 ML SYRINGE SUBCUT SCH ×2 (05:52→13:09)
[2017-11-13] MEDS: NORMAL SALINE 1000 ML 1,000 ML IV PRN ×2 (05:53→13:53)
[2017-11-13] MEDS: BICALUTAMIDE 50 MG TABLET PO SCH (09:29)
[2017-11-13] MEDS: LIDOCAINE 5% (700 MG) TRANSDERMAL ADH..PATCH TP SCH (09:29)
[2017-11-13] MEDS: OXYCODONE-ACETAMINOPHEN 5-325 MG TABLET PO PRN ×2 (09:31→19:13)
[2017-11-13] MEDS: DOCUSATE SODIUM 100 MG CAPSULE PO SCH ×2 (09:31→17:13)
--- NOTE | 2017-11-13 09:41 | PDOC PROGRESS REPORT ---
Subjective Progress Note for:: 11/13/17 Subjective:: Patient admitted with syncopal episode. He sustained laceration above the right eyebrow. He denies any current dizziness with his main complaints being left rib pain. System review is positive for pleuritic chest pain. He denies any bleeding cough fever or any other pertinent complaints. Reason For Visit: SYNCOPE, ARF, RIB FX, PROSTATE CA W BONE METS Physical Exam Vital Signs: Temp Pulse Resp BP Pulse Ox 98.1 F 88 14 109/47 L 93 11/12/17 19:36 11/13/17 08:25 11/13/17 08:25 11/13/17 05:27 11/12/17 15:36 Intake & Output 11/12/17 11/13/17 11/14/17 06:59 06:59 06:59 Intake Total 1694 Output Total 250 1650 Balance -250 44 Weight 65.9 kg General appearance: PRESENT: no acute distress, well-developed, well-nourished Head exam: PRESENT: atraumatic, normocephalic Eye exam: PRESENT: conjunctiva pink, EOMI, PERRLA. ABSENT: scleral icterus Ear exam: PRESENT: normal external ear exam Mouth exam: PRESENT: moist, tongue midline Neck exam: ABSENT: carotid bruit, JVD, lymphadenopathy, thyromegaly Respiratory exam: PRESENT: clear to auscultation darrel. ABSENT: rales, rhonchi, wheezes Cardiovascular exam: PRESENT: RRR. ABSENT: diastolic murmur, rubs, systolic murmur Pulses: PRESENT: normal dorsalis pedis pul Vascular exam: PRESENT: normal capillary refill GI/Abdominal exam: PRESENT: normal bowel sounds, soft. ABSENT: distended, guarding, mass, organolmegaly, rebound, tenderness Rectal exam: PRESENT: deferred Gentrourinary exam: PRESENT: other - Bilateral nephrostomy tube Extremities exam: PRESENT: full ROM. ABSENT: calf tenderness, clubbing, pedal edema Musculoskeletal exam: PRESENT: tenderness - Left rib, other - Left lower chest wall tenderness Steri-Strip over left eyebrow Neurological exam: PRESENT: alert, awake, oriented to person, oriented to place , oriented to time, oriented to situation, CN II-XII grossly intact. ABSENT: motor sensory deficit Psychiatric exam: PRESENT: appropriate affect, normal mood. ABSENT: homicidal ideation, suicidal ideation Skin exam: PRESENT: dry, intact, warm. ABSENT: cyanosis, rash Results Laboratory Results: 11/13/17 03:46 11/13/17 03:46 11/13/17 11/13/17 03:46 03:46 WBC 1.8 L RBC 3.17 L Hgb 8.7 L D Hct 26.2 L MCV 83 MCH 27.6 MCHC 33.4 RDW 16.7 H Plt Count 199 Seg Neutrophils % Not Reportable Lymphocytes % Not Reportable Monocytes % Not Reportable Eosinophils % Not Reportable Basophils % Not Reportable Absolute Neutrophils Not Reportable Absolute Lymphocytes Not Reportable Absolute Monocytes Not Reportable Absolute Eosinophils Not Reportable Absolute Basophils Not Reportable Sodium 137.9 Potassium 5.1 H Chloride 111 H Carbon Dioxide 21 L Anion Gap 6 BUN 24 H Creatinine 2.03 H Est GFR ( Amer) 40 L Est GFR (Non-Af Amer) 33 L Glucose 94 Calcium 8.3 L 11/13/17 03:46 Creatine Kinase 218 H Impressions: Chest X-Ray 11/11/17 19:57 IMPRESSION: Dense patchy bone sclerosis raises the possibility of renal osteodystrophy or osseous metastatic disease. No acute cardiopulmonary disease. Head CT 11/11/17 19:57 IMPRESSION: NORMAL BRAIN CT WITHOUT CONTRAST. EVIDENCE OF ACUTE STROKE: NO. Abdomen/Pelvis CT 11/11/17 22:28 IMPRESSION: 1. Minimally displaced fractures at the posterior left 11th and 12th ribs. Otherwise, acute posttraumatic findings in the abdomen or pelvis on unenhanced CT. 2. Lobulated soft tissue density at the base of the urinary bladder, worrisome for neoplasm. Correlation with recent cystoscopy recommended. 3. Bilateral nephrostomy tubes. 4. Cholelithiasis. 5. Diffuse skeletal metastasis. Cervical Spine CT 11/11/17 22:28 IMPRESSION: 1. No CT evidence for acute fracture at the cervical spine. Multilevel degenerative changes. 2. Diffuse skeletal metastatic disease. 3. Emphysema. Chest CT 11/11/17 22:28 IMPRESSION: 1. Minimally displaced fractures at the posterior left 11th and 12th ribs. No pneumothorax. 2. Emphysema. 3. Diffuse skeletal metastases. Assessment & Plan - Time Time Spent with patient: 15-24 minutes Anticipated discharge: Home - Inpatient Certification Medical Necessity: Other - Patient has anemia with precipitous drop in hemoglobin and was admitted with syncope with rib fracture. This needs further evaluation prior to discharge - Plan Summary Plan Summary: Assessment and plan The current diagnoses during this admission 1. Acute kidney injury superimposed on chronic kidney disease. Patient is currently receiving IV fluids. His creatinine has improved likely to baseline. 2. Anemia with significant drop in hemoglobin since admission. I do not think we can explain this on the basis of hemodilution alone although there is no overt evidence of bleeding. In view of the face and anemia patient needs to be further monitored in hospital. 3. Orthostatic hypotension due to intravascular volume depletion. Of course anemia is also a consideration. 4. Polypharmacy will hold medications as appropriate 5. Rib fracture 11th and 12th left ribs secondary to syncopal episode. Will try and encourage incentive spirometry and hopefully avoid atelectasis or pneumonia 6. Syncope leading to the rib fracture above probably multifactorial. #7 prostate cancer with widespread bony metastases
[2017-11-13 12:54] LABS: PATH REVIEW PATHOLOGIST REVIEWED
[2017-11-13] MEDS: PREDNISONE 5 MG TABLET PO SCH (13:52)
[2017-11-13] MEDS ORDERED: PREDNISONE 5 MG TABLET PO ONE (14:00)
[2017-11-14] MEDS: IPRATROPIUM/ALBUTEROL 0.5-2.5 MG/3 ML AMPUL NEB SCH ×2 (00:12→08:20)
[2017-11-14] MEDS: OXYCODONE-ACETAMINOPHEN 5-325 MG TABLET PO PRN ×2 (00:17→06:34)
[2017-11-14] MEDS: HEPARIN SOD (PORCINE) 5,000 UNIT/ML 1 ML SYRINGE SUBCUT SCH ×2 (00:18→05:50)
[2017-11-14] MEDS: MORPHINE SULFATE 10 MG/ML INJ IV PRN (05:50)
[2017-11-14] MEDS: LANSOPRAZOLE 30 MG TAB.RAP.DR PO SCH (05:50)
[2017-11-14 06:27] LABS: HEMATOCRIT 25.5 % (37.9-51.0); HEMOGLOBIN 8.4 g/dL (13.5-17.0); MEAN CORPUSCULAR HEMOGLOBIN 27.6 pg (27.0-33.4); MEAN CORPUSCULAR HGB CONC 32.9 g/dL (32.0-36.0); MEAN CORPUSCULAR VOLUME 84 fl (80-97); PLATELET COUNT 207 10^3/uL (150-450); RED BLOOD COUNT 3.03 10^6/uL (4.35-5.55); RED CELL DISTRIBUTION WIDTH 17.2 % (11.5-14.0)
[2017-11-14 06:32] LABS: ANION GAP 7 (5-19); BLOOD UREA NITROGEN 19 mg/dL (7-20); CALCIUM 8.3 mg/dL (8.4-10.2); CARBON DIOXIDE 21 mmol/L (22-30); CHLORIDE 109 mmol/L (98-107); GLUCOSE 85 mg/dL (75-110); POTASSIUM 4.5 mmol/L (3.6-5.0); SODIUM 136.7 mmol/L (137-145)
[2017-11-14] MEDS: NORMAL SALINE 1000 ML 1,000 ML IV PRN (06:39)
[2017-11-14] MEDS: DOCUSATE SODIUM 100 MG CAPSULE PO SCH (11:39)
[2017-11-14] MEDS: BICALUTAMIDE 50 MG TABLET PO SCH (11:39)
[2017-11-14] MEDS: LIDOCAINE 5% (700 MG) TRANSDERMAL ADH..PATCH TP SCH (11:40)
[2017-11-14] MEDS: PREDNISONE 5 MG TABLET PO SCH (11:41)
[2017-11-14 12:04] VITALS: BP 143/67
--- NOTE | 2017-11-16 08:47 | PDOC DISCHARGE SUMMARY ---
General - Admit/Disc Date/PCP Admission Date/Primary Care Provider: 11/12/17 00:55 Discharge Date: 11/14/17 - Discharge Diagnosis (1) Syncope Is this a current diagnosis for this admission?: Yes (2) Rib fracture Is this a current diagnosis for this admission?: Yes (3) Polypharmacy Is this a current diagnosis for this admission?: Yes (4) Orthostatic hypotension Is this a current diagnosis for this admission?: Yes (5) Prostate cancer metastatic to bone Is this a current diagnosis for this admission?: Yes (6) Anemia Is this a current diagnosis for this admission?: Yes - Additional Information Resuscitation Status: Full Code Discharge Diet: Regular Discharge Activity: Activity As Tolerated Prescriptions: Oxycodone HCl/Acetaminophen [Endocet 5-325 Tablet] 1 tab PO Q6HP PRN #10 tablet PRN Reason: For Pain Lidocaine [Lidoderm 5% (700 mg) Transdermal Patch] 2 patch TP DAILY #10 adh..patch Home Medications: Bicalutamide [Casodex 50 mg Tablet] 50 mg PO DAILY 11/12/17 Esomeprazole Magnesium [Nexium] 40 mg PO QAM@0630 11/12/17 Prednisone [Deltasone 5 mg Tablet] 5 mg PO DAILY 11/12/17 Lidocaine [Lidoderm 5% (700 mg) Transdermal Patch] 2 patch TP DAILY #10 adh..patch 11/14/17 Oxycodone HCl/Acetaminophen [Endocet 5-325 Tablet] 1 tab PO Q6HP PRN #10 tablet 11/14/17 History of Present Illness History of Present Illness: JOSE ANTONIO BURGOS SR is a 67 year old male admitted after witnessed syncopal episode. He sustained a laceration to the right below requiring Steri-Strips. He did have a left 11th and 12th rib fractures secondary to the fall. Hospital Course Hospital Course: Patient was also found to be hypotensive. Was thought to be dehydrated as well as orthostatic from some of his medications including Flomax. Patient has known widespread metastatic disease to the bones with a prostate primary. He was treated with aggressive intravenous fluids and his medications were adjusted. He was also found to be anemic but has no evidence of any acute blood loss and due to patient's widespread metastases no further interventions were planned as his hemoglobin remained stable. He will follow up with oncologist as outpatient. Patient narcotics were also adjusted and was advised on the need to avoid multiple narcotic agents as well as his other medications to avoid further episodes of hypotension. He ambulated in the hallways with no issues and says being discharged home in stable condition. Physical Exam Vital Signs: Temp Pulse Resp BP Pulse Ox 98.1 F 80 12 93/52 L 96 11/12/17 19:36 11/14/17 08:20 11/14/17 09:00 11/14/17 05:29 11/14/17 08:20 Intake & Output 11/13/17 11/14/17 11/15/17 06:59 06:59 06:59 Intake Total 1694 2070 Output Total 1650 1970 Balance 44 100 Weight 65.9 kg 69.9 kg General appearance: PRESENT: no acute distress, well-developed Head exam: PRESENT: atraumatic, normocephalic Eye exam: PRESENT: conjunctiva pink, EOMI, PERRLA. ABSENT: scleral icterus Ear exam: PRESENT: normal external ear exam Mouth exam: PRESENT: moist, tongue midline Neck exam: ABSENT: carotid bruit, JVD, lymphadenopathy, thyromegaly Respiratory exam: PRESENT: clear to auscultation darrel. ABSENT: rales, rhonchi, wheezes Cardiovascular exam: PRESENT: RRR. ABSENT: diastolic murmur, rubs, systolic murmur Pulses: PRESENT: normal dorsalis pedis pul Vascular exam: PRESENT: normal capillary refill GI/Abdominal exam: PRESENT: normal bowel sounds, soft. ABSENT: distended, guarding, mass, organolmegaly, rebound, tenderness Rectal exam: PRESENT: deferred Gentrourinary exam: PRESENT: other - Bilateral nephrosomies with clear yellow urine drainage Extremities exam: PRESENT: full ROM. ABSENT: calf tenderness, clubbing, pedal edema Neurological exam: PRESENT: alert, awake, oriented to person, oriented to place , oriented to time, oriented to situation, CN II-XII grossly intact. ABSENT: motor sensory deficit Psychiatric exam: PRESENT: appropriate affect, normal mood. ABSENT: homicidal ideation, suicidal ideation Skin exam: PRESENT: dry, intact, warm. ABSENT: cyanosis, rash Results Laboratory Results: 11/14/17 05:45 11/14/17 05:45 11/14/17 11/14/17 05:45 05:45 WBC 2.0 L RBC 3.03 L Hgb 8.4 L Hct 25.5 L MCV 84 MCH 27.6 MCHC 32.9 RDW 17.2 H Plt Count 207 Sodium 136.7 L Potassium 4.5 Chloride 109 H Carbon Dioxide 21 L Anion Gap 7 BUN 19 Creatinine 1.89 H Est GFR ( Amer) 43 L Est GFR (Non-Af Amer) 36 L Glucose 85 Calcium 8.3 L 11/13/17 03:46 Creatine Kinase 218 H Impressions: Chest X-Ray 11/11/17 19:57 IMPRESSION: Dense patchy bone sclerosis raises the possibility of renal osteodystrophy or osseous metastatic disease. No acute cardiopulmonary disease. Head CT 11/11/17 19:57 IMPRESSION: NORMAL BRAIN CT WITHOUT CONTRAST. EVIDENCE OF ACUTE STROKE: NO. Abdomen/Pelvis CT 11/11/17 22:28 IMPRESSION: 1. Minimally displaced fractures at the posterior left 11th and 12th ribs. Otherwise, acute posttraumatic findings in the abdomen or pelvis on unenhanced CT. 2. Lobulated soft tissue density at the base of the urinary bladder, worrisome for neoplasm. Correlation with recent cystoscopy recommended. 3. Bilateral nephrostomy tubes. 4. Cholelithiasis. 5. Diffuse skeletal metastasis. Cervical Spine CT 11/11/17 22:28 IMPRESSION: 1. No CT evidence for acute fracture at the cervical spine. Multilevel degenerative changes. 2. Diffuse skeletal metastatic disease. 3. Emphysema. Chest CT 11/11/17 22:28 IMPRESSION: 1. Minimally displaced fractures at the posterior left 11th and 12th ribs. No pneumothorax. 2. Emphysema. 3. Diffuse skeletal metastases. Plan Discharge Plan: He is to follow-up with his primary care physician as well as his oncologist as advised Time Spent: Greater than 30 Minutes
== END 2017-11-14 12:40 | disposition home or self-care (01) ==
LOC: ER 18:32 → EH 11-12 00:55 → ICU 11-12 15:23
PROVIDERS: ADMIT Internal Medicine; ATTEND Internal Medicine
PROC: 0HQ1XZZ Repair Face Skin, External Approach (ICD-10-PCS; principal; 2017-11-12)
DX: S22.42XA Multiple fractures of ribs, left side, initial encounter for closed fracture (principal); S01.111A Laceration without foreign body of right eyelid and periocular area, initial encounter; W18.09XA Striking against other object with subsequent fall, initial encounter; Y92.000 Kitchen of unspecified non-institutional (private) residence as the place of occurrence of the external cause; R55 Syncope and collapse; I95.1 Orthostatic hypotension; F17.210 Nicotine dependence, cigarettes, uncomplicated; C61 Malignant neoplasm of prostate; C79.51 Secondary malignant neoplasm of bone; D64.9 Anemia, unspecified; F12.10 Cannabis abuse, uncomplicated; I12.9 Hypertensive chronic kidney disease with stage 1 through stage 4 chronic kidney disease, or unspecified chronic kidney disease; N18.9 Chronic kidney disease, unspecified; N17.9 Acute kidney failure, unspecified; J43.9 Emphysema, unspecified; F17.200 Nicotine dependence, unspecified, uncomplicated; Z93.6 Other artificial openings of urinary tract status; Z80.9 Family history of malignant neoplasm, unspecified
CPT/HCPCS: 12013; 93005; 36591; 99291; 96372; 96361; 96374; 96375; 36415; 82553; 82550 ×2; 83735; 85025 ×3; 85027; 85610; 85730; 80048 ×3; 80053; 81001; 84484; 80307; 71046; 70450; 71250; 72125; 74176; 93010; 94640 ×3; 97163; G0378 ×4; J1644 ×3; A9270 ×17; J3490; J2270 ×3; J2405; J7030 ×4; G8978; G8979; J7512; J7620

== ENCOUNTER 2018-01-01 11:33 | Emergency (ER) | payer MEDICARE, MEDICAID ==
[2018-01-01] MEDS ORDERED: ACETAMINOPHEN 325 MG TABLET PO ONE (12:01)
--- NOTE | 2018-01-01 12:05 | ER Document Report ---
ED Medical Screen (RME) - General Chief Complaint: Fever Stated Complaint: FEVER Time Seen by Provider: 01/01/18 12:01 Mode of Arrival: Wheelchair Information source: Patient Notes: 67-year-old male history of prostate cancer who had chemotherapy last week presents with complaints of fever decreased body aches I have greeted and performed a rapid initial assessment of this patient. A comprehensive ED assessment and evaluation of the patient, analysis of test results and completion of the medical decision making process will be conducted by additional ED providers. PHYSICAL EXAMINATION: GENERAL: Ill-appearing male hypotensive HEAD: Atraumatic, normocephalic. EYES: Pupils equal round extraocular movements intact, conjunctiva are normal. ENT: Nares patent NECK: Normal range of motion LUNGS: No respiratory distress Musculoskeletal: Normal range of motion NEUROLOGICAL: Normal speech, normal gait. PSYCH: Normal mood, normal affect. SKIN: Jaundiced TRAVEL OUTSIDE OF THE U.S. IN LAST 30 DAYS: No - Related Data Allergies/Adverse Reactions: procaine [From Novocain] Adverse Reaction (Verified 11/11/17 18:35) Past Medical History - Past Medical History Cardiac Medical History: Reports: Hx Hypertension Pulmonary Medical History: Reports: Hx COPD Renal/ Medical History: Denies: Hx Peritoneal Dialysis Past Surgical History: Reports: Other - Bilateral nephrostomy tubes - Immunizations History of Influenza Vaccine for 07/2017 - 12/2017 Season: Refused Physical Exam - Vital signs Vitals: BP 74/51 L 01/01/18 11:59 Course - Vital Signs Vital signs: Temp Pulse Resp BP Pulse Ox 74/51 L 01/01/18 11:59 Doctor's Discharge - Discharge Referrals: JESSICA CARMONA DO [Primary Care Provider] - Follow up as needed
[2018-01-01 12:58] LABS: ABSOLUTE LYMPHOCYTES (AUTO) 0.6 10^3/uL (0.5-4.7); ABSOLUTE MONOCYTES (AUTO) 0.6 10^3/uL (0.1-1.4); ABSOLUTE NEUT (AUTO) 8.7 10^3/uL (1.7-8.2); BASOPHILS % (AUTO) 0.4 % (0-2); EOSINOPHILS % (AUTO) 0.1 % (0-6); HEMATOCRIT 26.8 % (37.9-51.0); LYMPHOCYTES % (AUTO) 6.2 % (13-45); MEAN CORPUSCULAR HEMOGLOBIN 26.5 pg (27.0-33.4); MEAN CORPUSCULAR HGB CONC 33.6 g/dL (32.0-36.0); MEAN CORPUSCULAR VOLUME 79 fl (80-97); MONOCYTES % (AUTO) 5.7 % (3-13); PLATELET COUNT 271 10^3/uL (150-450); RED CELL DISTRIBUTION WIDTH 19.9 % (11.5-14.0); SEGMENTED NEUTROPHILS % (AUTO) 87.6 % (42-78); TOTAL CELLS COUNTED % (AUTO) 100 %; WHITE BLOOD COUNT 9.9 10^3/uL (4.0-10.5)
[2018-01-01 12:59] LABS: VENOUS BLOOD BASE EXCESS -6.6 mmol/L; VENOUS BLOOD HCO3 18.4 mmol/L (20-32); VENOUS BLOOD PCO2 34.4 mmHg (35-63); VENOUS BLOOD PH 7.35 (7.30-7.42)
--- NOTE | 2018-01-01 13:06 | ER Document Report ---
ED General - General Chief Complaint: Fever Stated Complaint: FEVER Time Seen by Provider: 01/01/18 12:01 Mode of Arrival: Wheelchair Information source: Patient TRAVEL OUTSIDE OF THE U.S. 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 Patient denies any vomiting or nausea. Worse with time, nothing makes better. Patient did try Imodium without relief. Denies any recent travel, new foods or new medications. Patient recently had chemo 1 week ago, patient's oncologist is Dr. Thacker. Patient is managed for his bilateral nephrostomy tubes by Dr. Félix dillon at [facility] in [place], [place]. Denies chest pain,palpitations, shortness of breath, dyspnea, nausea, vomiting, abdominal pain, hematuria, blurred vision, double vision, loss of vision, speech changes, LH, dizziness, syncope, headaches, wheezing, ST, URI, neck pain, weakness, bowel or bladder dysfunction, saddle anesthesia, numbness or tingling in bilateral upper or lower extremities equally, muscle paralysis, weakness in bilateral upper or lower extremities equally or rash. - Related Data Allergies/Adverse Reactions: procaine [From Novocain] Adverse Reaction (Verified 01/01/18 12:26) Past Medical History - General Information source: Patient - Social History Smoking Status: Current Every Day Smoker Chew tobacco use (# tins/day): No Frequency of alcohol use: None Drug Abuse: Marijuana Family History: Hypertension, Malignancy Patient has suicidal ideation: No Patient has homicidal ideation: No - Past Medical History Cardiac Medical History: Reports: Hx Hypertension Pulmonary Medical History: Reports: Hx COPD Renal/ Medical History: Denies: Hx Peritoneal Dialysis Past Surgical History: Reports: Other - Bilateral nephrostomy tubes Review of Systems - Review of Systems Notes: REVIEW OF SYSTEMS: CONSTITUTIONAL : + fever and chills/ or sweats. Denies recent illness. EENT: Denies eye, ear, throat, or mouth pain or symptoms. Denies nasal or sinus congestion or discharge. Denies throat, tongue, or mouth swelling or difficulty swallowing. CARDIOVASCULAR: Denies chest pain. Denies palpitations or racing or irregular heart beat. Denies ankle edema. RESPIRATORY: Denies cough, cold, or chest congestion. Denies shortness of breath, difficulty breathing, or wheezing. GASTROINTESTINAL: Denies abdominal pain or distention. Denies nausea, vomiting , or diarrhea. Denies blood in vomitus, stools, or per rectum. Denies black, tarry stools. Denies constipation. GENITOURINARY: Denies difficulty urinating, painful urination, burning, frequency, blood in urine, or discharge. MUSCULOSKELETAL: Denies back or neck pain or stiffness. Denies joint pain or swelling. SKIN: Denies rash, lesions or sores. HEMATOLOGIC : Denies easy bruising or bleeding. LYMPHATIC: Denies swollen, enlarged glands. NEUROLOGICAL: Denies confusion or altered mental status. Denies passing out or loss of consciousness. Denies dizziness or lightheadedness. Denies headache. Denies weakness or paralysis or loss of use of either side. Denies problems with gait or speech. Denies sensory loss, numbness, or tingling. Denies seizures. PSYCHIATRIC: Denies anxiety or stress. Denies depression, suicidal ideation, or homicidal ideation. ALL OTHER SYSTEMS REVIEWED AND NEGATIVE. Dictation was performed using [employer] voice recognition software PHYSICAL EXAMINATION: GENERAL: Likely ill well-nourished and in no acute distress. HEAD: Atraumatic, normocephalic. EYES: Pupils equal round and reactive to light, extraocular movements intact, sclera anicteric, conjunctiva are normal. ENT: Nares patent, oropharynx clear without exudates. Moist mucous membranes. NECK: Normal range of motion, supple without lymphadenopathy LUNGS: Breath sounds clear to auscultation bilaterally and equal. No wheezes rales or rhonchi. HEART: Regular rate and rhythm without murmurs ABDOMEN: Soft, nontender, nondistended abdomen. No guarding, no rebound. No masses appreciated. Musculoskeletal: Normal range of motion, no pitting or edema. No cyanosis. NEUROLOGICAL: Cranial nerves grossly intact. Normal speech, normal gait. Normal sensory, motor exams PSYCH: Normal mood, normal affect. SKIN: Warm, Dry, normal turgor, no rashes or lesions noted. Right PICC line site without any erythema, induration or swelling. Bilateral nephrostomy tubes without any induration, swelling or erythema. Physical Exam - Vital signs Vitals: Pulse BP Pulse Ox 85 78/53 L 89 L 01/01/18 11:52 01/01/18 11:52 01/01/18 11:52 Course - Re-evaluation Re-evalutation: 01/01/18 17:28 67-year-old male with a history of prostate cancer with metastasis presents today with complaints of dehydration, fevers and diarrhea for the last 3 days. CBC does not show leukocytosis however he does have a left shift, noted anemia. CMP shows a potassium with 4.1, lactic of 0.9, AST of 132. Creatinine is 3.6 with a BUN of 46. Lactic is 0.9. Blood gas shows he is in metabolic acidosis. chest x-ray was normal. Patient's blood pressure did increase to 2 L of normal saline. EKG patient's heart rate is 72, normal sinus rhythm, nonspecific ST segment elevations. On reevaluation, patient states he feels much better. This facility does not have nephrology on-call will have to transfer to an outside facility. Patient had nephrostomy tubes placed at [facility] in [facility], [place] . [facility] contacted, discussed case with Dr. Delio Ram, hospitalist at 1400. Dr. Ac Mcintosh made aware of transfer and co-signed EMTALA. [facility] will accept patient to the medical floor for further evaluation of medical care. Patient's vitals are stable. Patient is in no distress. Questions and concerns by this provider. Patient verbalized understanding of plan of care and agree with plan of care. - Vital Signs Vital signs: Temp Pulse Resp BP Pulse Ox 98.4 F 85 20 116/70 100 01/01/18 16:00 01/01/18 11:52 01/01/18 19:01 01/01/18 19:00 01/01/18 19:01 - Laboratory Result Diagrams: 01/01/18 12:40 01/01/18 12:40 Laboratory results interpreted by me: 01/01/18 01/01/18 01/01/18 12:40 12:40 12:40 RBC 3.40 L Hgb 9.0 L Hct 26.8 L MCV 79 L MCH 26.5 L RDW 19.9 H Seg Neutrophils % 87.6 H Lymphocytes % 6.2 L Absolute Neutrophils 8.7 H VBG pCO2 34.4 L VBG HCO3 18.4 L Sodium 124.2 L Chloride 93 L Carbon Dioxide 18 L BUN 46 H Creatinine 3.60 H Est GFR ( Amer) 21 L Est GFR (Non-Af Amer) 17 L Glucose 72 L Calcium 8.2 L Direct Bilirubin 0.6 H AST 132 H Total Protein 5.9 L Albumin 3.4 L Urine Protein Urine Ketones Urine Blood Ur Leukocyte Esterase 01/01/18 14:45 RBC Hgb Hct MCV MCH RDW Seg Neutrophils % Lymphocytes % Absolute Neutrophils VBG pCO2 VBG HCO3 Sodium Chloride Carbon Dioxide BUN Creatinine Est GFR ( Amer) Est GFR (Non-Af Amer) Glucose Calcium Direct Bilirubin AST Total Protein Albumin Urine Protein 100 H Urine Ketones TRACE H Urine Blood LARGE H Ur Leukocyte Esterase MODERATE H Discharge - Discharge Clinical Impression: Diarrhea, Metabolic acidosis, Chronic renal failure Condition: Good Disposition: [facility] Referrals: JESSICA CARMONA DO [Primary Care Provider] - Follow up as needed
[2018-01-01 13:12] LABS: INTERNATIONAL RATION (INR) 1.12; PROTHROMBIN TIME 15.1 SEC (11.4-15.4)
[2018-01-01 13:18] LABS: PHOSPHORUS 3.7 mg/dL (2.5-4.5)
[2018-01-01 13:22] LABS: ALANINE AMINOTRANSFERASE 59 U/L (21-72); ALBUMIN 3.4 g/dL (3.5-5.0); ALKALINE PHOSPHATASE 76 U/L (38-126); ANION GAP 13 (5-19); ASPARTATE AMINO TRANSFERASE 132 U/L (17-59); BILIRUBIN,DIRECT 0.6 mg/dL (0.0-0.4); BILIRUBIN,TOTAL 0.6 mg/dL (0.2-1.3); BLOOD UREA NITROGEN 46 mg/dL (7-20); CALCIUM 8.2 mg/dL (8.4-10.2); CARBON DIOXIDE 18 mmol/L (22-30); CHLORIDE 93 mmol/L (98-107); GLUCOSE 72 mg/dL (75-110); POTASSIUM 4.1 mmol/L (3.6-5.0); SODIUM 124.2 mmol/L (137-145); TOTAL PROTEIN 5.9 g/dL (6.3-8.2)
[2018-01-01] MEDS ORDERED: VANCOMYCIN HCL INJ 1000 MG VIAL IV ONE (13:22)
[2018-01-01] MEDS ORDERED: PIPERACILLIN/TAZOBACTAM 3.375 GM VIAL IV ONE (13:46)
[2018-01-01] MEDS: NORMAL SALINE 1000 ML 1,000 ML IV PRN ×2 (13:48→17:33)
--- NOTE | 2018-01-01 14:01 | RADIOLOGY REPORT (SQ) ---
EXAM DESCRIPTION: CHEST PA/LAT COMPLETED DATE/TIME: 01/01/2018 1:29 pm REASON FOR STUDY: fever COMPARISON: 11/11/2017 EXAM PARAMETERS: NUMBER OF VIEWS: two views TECHNIQUE: Digital Frontal and Lateral radiographic views of the chest acquired. RADIATION DOSE: NA LIMITATIONS: none FINDINGS: LUNGS AND PLEURA: The lungs are somewhat hyperexpanded. There is no infiltrate or effusio n. There is no mass. MEDIASTINUM AND HILAR STRUCTURES: No masses or contour abnormalities. HEART AND VASCULAR STRUCTURES: Heart normal size. No evidence for failure. BONES: No acute findings. HARDWARE: Catheter on the left. The tip is in the superior vena cava. OTHER: No other significant finding. IMPRESSION: Chronic lung changes with no acute cardiopulmonary disease. TECHNICAL DOCUMENTATION: JOB ID: [id number] [employer]- All Rights Reserved Reading location - IP/workstation name: [email or web address]
[2018-01-01 15:49] LABS: APPEARANCE,URINE SLIGHTLY-CLOUDY; BILIRUBIN,URINE NEGATIVE (NEGATIVE); COLOR,URINE YELLOW; GLUCOSE, URINE NEGATIVE (NEGATIVE); KETONES,URINE TRACE mg/dL (NEGATIVE); LEUKOCYTE ESTERASE,URINE MODERATE (NEGATIVE); NITRITE,URINE NEGATIVE (NEGATIVE); PROTEIN,URINE 100 mg/dL (NEGATIVE); URINE SPECIFIC GRAVITY 1.011; UROBILINOGEN,URINE NEGATIVE mg/dL (<2.0)
--- NOTE | 2018-01-01 17:52 | RADIOLOGY REPORT (SQ) ---
EXAM DESCRIPTION: CT ABD/PELVIS NO ORAL OR IV COMPLETED DATE/TIME: 01/01/2018 5:09 pm REASON FOR STUDY: fever w/ diarrhea x 3 days. prostate Ca with mets COMPARISON: 11/11/2017 TECHNIQUE: CT scan of the abdomen and pelvis performed without intravenous or oral contrast. Images reviewed with lung, soft tissue, and bone windows. Reconstructed coronal and sagittal MPR images revi ewed. All images stored on PACS. All CT scanners at this facility use dose modulation, iterative reconstruction, and/or weight based d osing when appropriate to reduce radiation dose to as low as reasonably achievable (ALARA). [facility]: Dose Right [facility]: CareDose [facility]: Dose Right [facility]: Teradose 4D [facility]: [employer] RADIATION DOSE: CT Rad equipment meets quality standard of care and radiation dose reduction techniq ues were employed. CTDIvol: 4.9 mGy. DLP: 226 mGy-cm.mGy. LIMITATIONS: None. FINDINGS: LOWER CHEST: No significant findings. No nodules or infiltrates. NON-CONTRASTED LIVER, SPLEEN, ADRENALS: Evaluation limited by lack of IV contrast. No identified sign ificant masses. PANCREAS: No masses. No peripancreatic inflammatory changes. GALLBLADDER: Multiple calcified gallstones. No inflammatory changes to suggest cholecystitis. RIGHT KIDNEY AND URETER: Percutaneous nephroureteral stent. No suspicious masses. Assessment limited by lack of IV contrast. No significant calcifications. Mild hydronephrosis - hydroureter. LEFT KIDNEY AND URETER: Percutaneous nephroureteral stent. Similar exophytic cyst. Assessment limit ed by lack of IV contrast. No significant calcifications. Mild hydronephrosis - hydroureter. AORTA AND RETROPERITONEUM: No aneurysm. Scattered small retroperitoneal nodes. BOWEL AND PERITONEAL CAVITY: No obvious masses or inflammatory changes. No free fluid. APPENDIX: Normal. PELVIS, BLADDER, AND ABDOMINAL WALL:Enlarged prostate. No free fluid. Bladder normal. BONES: Possibly new nondisplaced left posterolateral 10th rib fracture. Posterior left 11th and 12th rib fractures are again noted. Diffuse blastic metastatic disease. OTHER: No other significant finding. IMPRESSION: Possibly new nondisplaced left posterolateral 10th rib fracture. Bilateral Percutaneous nephroureteral stent with mild hydronephrosis - hydroureter. No other acute f indings. COMMENT: Quality ID # [id number]: Final reports with documentation of one or more dose reduction techniques (e.g., Automated exposure control, adjustment of the mA and/or kV according to patient size, use of iterative reconstruction technique) TECHNICAL DOCUMENTATION: JOB ID: [id number] [place]-72 2010 [employer]- All Rights Reserved Reading location - IP/workstation name: [email or web address]
[2018-01-01 19:11] VITALS: BP 116/70
--- NOTE | 2018-01-01 19:18 | ER Document Report ---
Doctor's Note Notes: 01/01/18 19:18 Reevaluation prior to transport: Patient admits to being fatigued but denies any other somatic complaint. Vital signs are normal. He is alert and in no distress. He is stable for transport.
--- NOTE | 2018-01-01 22:10 | EKG REPORT ---
SEVERITY:- OTHERWISE NORMAL ECG - SINUS RHYTHM LOW VOLTAGE IN FRONTAL LEADS : Confirmed by: Tanja Chilel 01-Jan-2018 22:09:38
== END 2018-01-01 19:25 | disposition short-term general hospital (02) ==
LOC: ER 11:33
DX: J44.9 Chronic obstructive pulmonary disease, unspecified (principal); R19.7 Diarrhea, unspecified; N18.9 Chronic kidney disease, unspecified; E87.2 Acidosis; E86.0 Dehydration; R50.9 Fever, unspecified; M79.1 Myalgia; C61 Malignant neoplasm of prostate; C79.89 Secondary malignant neoplasm of other specified sites; F17.200 Nicotine dependence, unspecified, uncomplicated; I10 Essential (primary) hypertension
CPT/HCPCS: 93005; 99285; 96361; 96365; 96366; 96367; 36415; 87040; 87086; 82962; 83735; 84100; 85025; 85610; 87088; 80053; 81001; 87186; 82803; 83605; 71046; 74176; 93010; J7030; J3370; J2543

== ENCOUNTER 2018-01-22 13:48 | Emergency (ER) | payer MEDICARE, MEDICAID ==
--- NOTE | 2018-01-22 14:45 | ER Document Report ---
ED Medical Screen (RME) - General Chief Complaint: Urinary Problem Stated Complaint: BLOOD IN URINE Time Seen by Provider: 01/22/18 14:37 Notes: 67-year-old male patient complains of shortness of breath and dizziness. He also reports a lot of blood in his urine started 1 hour ago. He does have renal insufficiency and metastatic prostate cancer. I have greeted and performed a rapid initial assessment of this patient. A comprehensive ED assessment and evaluation of the patient, analysis of test results and completion of the medical decision making process will be conducted by additional ED providers. TRAVEL OUTSIDE OF THE [place].S. IN LAST 30 DAYS: No - Related Data Allergies/Adverse Reactions: procaine [From Novocain] Adverse Reaction (Verified 01/22/18 13:48) Past Medical History - Past Medical History Cardiac Medical History: Reports: Hx Hypertension Pulmonary Medical History: Reports: Hx COPD Renal/ Medical History: Denies: Hx Peritoneal Dialysis Past Surgical History: Reports: Hx Kidney (Renal Surgery), Other - Bilateral nephrostomy tubes - Immunizations History of Influenza Vaccine for 07/2017 - 12/2017 Season: Refused Physical Exam - Vital signs Vitals: Temp Pulse Resp BP Pulse Ox 97.7 F 118 H 18 91/54 L 100 01/22/18 13:51 01/22/18 13:51 01/22/18 13:51 01/22/18 13:51 01/22/18 13:51 Course - Vital Signs Vital signs: Temp Pulse Resp BP Pulse Ox 97.7 F 118 H 18 91/54 L 100 01/22/18 13:51 01/22/18 13:51 01/22/18 13:51 01/22/18 13:51 01/22/18 13:51
--- NOTE | 2018-01-22 15:14 | ER Document Report ---
ED GI/ - General Chief Complaint: Urinary Problem Stated Complaint: BLOOD IN URINE Time Seen by Provider: 01/22/18 14:37 Mode of Arrival: Ambulatory Information source: Patient TRAVEL OUTSIDE OF THE [place].S. IN LAST 30 DAYS: No - HPI Patient complains to provider of: Hematuria Onset: This morning Timing/Duration: Sudden Quality of pain: No pain Context: Other - PROSTATE Ca, RECEIVED CHEMOTx YESTERDAY (KATIE) HAS BILATERAL URETERAL STENTS, SEES DR. CAROLINA IN [place] Exacerbated by: Denies Relieved by: Denies Similar symptoms previously: No Recently seen / treated by doctor: Yes - DR. WILSON, YESTERDAY - Related Data Allergies/Adverse Reactions: procaine [From Novocain] Adverse Reaction (Verified 01/22/18 13:48) Past Medical History - General Information source: Patient - Social History Smoking Status: Current Every Day Smoker Cigarette use (# per day): Yes Chew tobacco use (# tins/day): No Smoking Education Provided: No Frequency of alcohol use: Rare Drug Abuse: None Lives with: Family Family History: Hypertension, Malignancy Patient has suicidal ideation: No Patient has homicidal ideation: No - Past Medical History Cardiac Medical History: Reports: Hx Hypertension Pulmonary Medical History: Reports: Hx COPD Neurological Medical History: Reports: None Endocrine Medical History: Reports: None Renal/ Medical History: Reports: None. Denies: Hx Peritoneal Dialysis Malignancy Medical History: Reports None GI Medical History: Reports: None Musculoskeltal Medical History: Reports None Psychiatric Medical History: Reports: None Past Surgical History: Reports: Hx Kidney (Renal Surgery), Other - Bilateral nephrostomy tubes Review of Systems - Review of Systems Constitutional: No symptoms reported. denies: Chills, Fever EENT: No symptoms reported Cardiovascular: No symptoms reported Respiratory: No symptoms reported Gastrointestinal: No symptoms reported Genitourinary: See HPI Musculoskeletal: No symptoms reported Skin: No symptoms reported Hematologic/Lymphatic: denies: Easy bleeding Neurological/Psychological: No symptoms reported Physical Exam - Vital signs Vitals: Temp Pulse Resp BP Pulse Ox 97.7 F 118 H 18 91/54 L 100 01/22/18 13:51 01/22/18 13:51 01/22/18 13:51 01/22/18 13:51 01/22/18 13:51 Interpretation: Hypotensive, Tachycardic. No: Tachypneic, Febrile - General General appearance: Appears well, Alert In distress: None - HEENT Head: Normocephalic Eyes: Pale conjunctiva Ears: Normal Nasal: Normal Mouth/Lips: Normal Mucous membranes: Normal - Respiratory Respiratory status: No respiratory distress Breath sounds: Normal - Cardiovascular Rhythm: Regular Heart sounds: Normal auscultation Murmur: No - Abdominal Inspection: Normal Distension: No distension Bowel sounds: Normal Tenderness: Nontender - Back Back: Normal - Extremities General upper extremity: Normal inspection General lower extremity: Normal inspection - Neurological Neuro grossly intact: Yes Cognition: Normal Orientation: AAOx4 - Psychological Associated symptoms: Normal affect, Normal mood - Skin Skin Temperature: Warm Skin Moisture: Dry Skin Color: Normal Skin Turgor: Elastic Course - Vital Signs Vital signs: Temp Pulse Resp BP Pulse Ox 97.7 F 118 H 17 96/61 L 97 01/22/18 13:51 01/22/18 13:51 01/22/18 20:42 01/22/18 20:42 01/22/18 20:42 - Laboratory Result Diagrams: 01/22/18 15:52 01/22/18 15:52 Laboratory results interpreted by me: 01/22/18 01/22/18 01/22/18 15:52 15:52 18:50 WBC 2.4 L RBC 3.66 L Hgb 9.8 L Hct 30.1 L MCH 26.8 L RDW 20.3 H Monocytes % (Manual) 19 H Abs Neuts (Manual) 1.3 L Sodium 130.2 L Chloride 94 L BUN 24 H Creatinine 2.37 H Est GFR ( Amer) 33 L Est GFR (Non-Af Amer) 28 L Direct Bilirubin 0.5 H AST 16 L ALT 20 L Creatine Kinase 53 L Urine Protein >=500 H Urine Glucose (UA) 50 H Urine Blood SMALL H - Consults DR. HEADLEY Time consulted: 21:20 Reason for consultation: 01/22/18 21:50 Patient's presentation, results of physical exam, and laboratory results discussed with Dr. Headley, who is covering for patient's urologist, Dr. Schmitt. He suggests keeping Mcqueen indwelling, begin antibiotics for presumed urinary tract infection and culture. Follow-up with Dr. schmitt in office, return to ER if complications. Consulted provider: follow-up in office Discharge - Discharge Clinical Impression: Gross hematuria, Acute kidney injury superimposed on chronic kidney disease, Prostate cancer metastatic to bone Anemia Qualifiers: Anemia type: other cause Other causes of anemia: antineoplastic chemotherapy Qualified Code(s): D64.81 - Anemia due to antineoplastic chemotherapy; T45.1X5A - Adverse effect of antineoplastic and immunosuppressive drugs, initial encounter; T45.1X5A - Adverse effect of antineoplastic and immunosuppressive drugs, initial encounter Condition: Stable Disposition: HOME, SELF-CARE Instructions: Hematuria (OM), Mcqueen Catheter Care ([facility]), Nitrofurantoin ([facility]) Additional Instructions: LEAVE MCQUEEN CATHETER IN PLACE UNTIL YOU SEE DR. SCHMITT. TAKE MACROBID DIRECTED, BEGINNING TOMORROW. CONTINUE YOUR OTHER MEDICATIONS USUAL. DRINK PLENTY OF FLUIDS. FOLLOW UP WITH DR. SCHMITT, CALL OFFICE TOMORROW TO SET UP APPOINTMENT. RETURN TO E.R. IF YOU GET WORSE IN ANY WAY. Prescriptions: Nitrofurantoin/Nitrofuran Mac [Macrobid 100 mg Capsule] 100 mg PO BID #20 capsule
--- NOTE | 2018-01-22 16:04 | EKG REPORT ---
SEVERITY:- BORDERLINE ECG - SINUS RHYTHM PROBABLE LEFT ATRIAL ABNORMALITY NONSPECIFIC LATERAL T WAVE CHANGES : Confirmed by: Ignacio Kaufman MD 22-Jan-2018 16:04:32
[2018-01-22 16:06] LABS: HEMATOCRIT 30.1 % (37.9-51.0); HEMOGLOBIN 9.8 g/dL (13.5-17.0); MEAN CORPUSCULAR HEMOGLOBIN 26.8 pg (27.0-33.4); MEAN CORPUSCULAR HGB CONC 32.5 g/dL (32.0-36.0); MEAN CORPUSCULAR VOLUME 82 fl (80-97); PLATELET COUNT 275 10^3/uL (150-450); RED BLOOD COUNT 3.66 10^6/uL (4.35-5.55); RED CELL DISTRIBUTION WIDTH 20.3 % (11.5-14.0); WHITE BLOOD COUNT 2.4 10^3/uL (4.0-10.5)
[2018-01-22 16:15] LABS: INTERNATIONAL RATION (INR) 0.98; PROTHROMBIN TIME 13.4 SEC (11.4-15.4)
[2018-01-22 16:24] LABS: ALANINE AMINOTRANSFERASE 20 U/L (21-72); ALBUMIN 3.8 g/dL (3.5-5.0); ALKALINE PHOSPHATASE 89 U/L (38-126); ANION GAP 11 (5-19); ASPARTATE AMINO TRANSFERASE 16 U/L (17-59); BILIRUBIN,DIRECT 0.5 mg/dL (0.0-0.4); BILIRUBIN,TOTAL 0.5 mg/dL (0.2-1.3); BLOOD UREA NITROGEN 24 mg/dL (7-20); CALCIUM 9.2 mg/dL (8.4-10.2); CARBON DIOXIDE 25 mmol/L (22-30); CHLORIDE 94 mmol/L (98-107); CREATINE KINASE 53 U/L (55-170); GLUCOSE 96 mg/dL (75-110); POTASSIUM 4.8 mmol/L (3.6-5.0); SODIUM 130.2 mmol/L (137-145); TOTAL PROTEIN 6.4 g/dL (6.3-8.2)
[2018-01-22 16:33] LABS: ABSOLUTE LYMPHOCYTES# (MANUAL) 0.6 10^3/uL (0.5-4.7); ABSOLUTE MONOCYTES # (MANUAL) 0.5 10^3/uL (0.1-1.4); ABSOLUTE NEUTROPHILS# (MANUAL) 1.3 10^3/uL (1.7-8.2); BAND NEUTROPHILS % (MANUAL) 5 % (3-5); BASOPHILS % (MANUAL) 2 % (0-2); EOSINOPHILS % (MANUAL) 0 % (0-6); LYMPHOCYTES % (MANUAL) 24 % (13-45); MONOCYTES % (MANUAL) 19 % (3-13); SEGMENTED NEUTROPHILS % (MAN) 49 % (42-78); TOTAL CELLS COUNTED 100
[2018-01-22 16:34] LABS: NT PRO BNP 208 pg/mL (5-900); TROPONIN I < 0.012 ng/mL
[2018-01-22 16:36] LABS: ANISOCYTOSIS 2+; HYPOCHROMASIA SLIGHT; OVALOCYTES 1+; PLATELET COMMENT ADEQUATE; POIKILOCYTOSIS 1+; POLYCHROMASIA SLIGHT; TEAR DROP CELLS SLIGHT; TOXIC VACUOLATION PRESENT
--- NOTE | 2018-01-22 17:22 | RADIOLOGY REPORT (SQ) ---
EXAM DESCRIPTION: CHEST 2 VIEWS COMPLETED DATE/TIME: 01/22/2018 5:13 pm REASON FOR STUDY: SOB COMPARISON: Two-view chest 01/01/2018, 11/11/2017 CT chest 11/11/2017 EXAM PARAMETERS: NUMBER OF VIEWS: two views TECHNIQUE: Digital Frontal and Lateral radiographic views of the chest acquired. RADIATION DOSE: NA LIMITATIONS: none FINDINGS: LUNGS AND PLEURA: No opacities, masses or pneumothorax. No pleural effusion. MEDIASTINUM AND HILAR STRUCTURES: No masses or contour abnormalities. HEART AND VASCULAR STRUCTURES: Heart normal size. No evidence for failure. BONES: Diffuse dense bony sclerosis from metastatic prostate cancer. HARDWARE: Left sided permanent central line tip in the superior vena cava. At the bottom edge of the field of view, bilateral nephrostomy catheters are identified. OTHER: No other significant finding. IMPRESSION: No acute findings. Diffuse bony sclerosis from prostate cancer. TECHNICAL DOCUMENTATION: JOB ID: [id number] [employer]- All Rights Reserved Reading location - IP/workstation name: [email or web address]
--- NOTE | 2018-01-22 17:27 | RADIOLOGY REPORT (SQ) ---
EXAM DESCRIPTION: KUB/ABDOMEN (SINGLE VIEW) COMPLETED DATE/TIME: 01/22/2018 5:17 pm REASON FOR STUDY: HEMATURIA COMPARISON: Abdominal CT scan dated 01/01/2018 NUMBER OF VIEWS: One view. TECHNIQUE: Supine radiographic image of the abdomen acquired. LIMITATIONS: None. FINDINGS: BOWEL GAS PATTERN: Normal bowel gas pattern. No dilated loops. CALCIFICATIONS: No suspicious calcifications. SOFT TISSUES: No gross mass or suggestion of organomegaly. HARDWARE: Bilateral double-J stents and bilateral nephrostomy catheters are identified BONES: Diffuse bony sclerotic densities are identified consistent with metastatic disease. OTHER: No other significant finding. IMPRESSION: Bilateral nephrostomies in double-J stents are identified in position. Diffuse bony met astatic disease. Other findings as noted above TECHNICAL DOCUMENTATION: JOB ID: [id number]- All Rights Reserved Reading location - IP/workstation name: [email or web address]
[2018-01-22 19:42] LABS: APPEARANCE,URINE TURBID; BILIRUBIN,URINE NEGATIVE (NEGATIVE); COLOR,URINE RED; GLUCOSE, URINE 50 mg/dL (NEGATIVE); KETONES,URINE NEGATIVE (NEGATIVE); LEUKOCYTE ESTERASE,URINE NEGATIVE (NEGATIVE); NITRITE,URINE NEGATIVE (NEGATIVE); PROTEIN,URINE >=500 mg/dL (NEGATIVE); UROBILINOGEN,URINE NEGATIVE mg/dL (<2.0)
[2018-01-22] MEDS ORDERED: NITROFURANTOIN MONOHYD/M-CRYST 100 MG CAPSULE PO ONE (21:47)
[2018-01-23 02:43] VITALS: BP 111/78
== END 2018-01-23 02:43 | disposition home or self-care (01) ==
LOC: ER 13:48
DX: C61 Malignant neoplasm of prostate (principal); C79.51 Secondary malignant neoplasm of bone; R31.0 Gross hematuria; N17.9 Acute kidney failure, unspecified; N18.9 Chronic kidney disease, unspecified; D64.81 Anemia due to antineoplastic chemotherapy
CPT/HCPCS: 93005; 36591; 99284; 51702; 36415; 87086; 82550; 83735; 85025; 85610; 80053; 81001; 84484; 83880; 71046; 74018; 93010; A9270; J8499

== ENCOUNTER 2018-03-17 15:52 | Emergency (ER) | payer OTHER, MEDICARE, MEDICAID ==
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
[2018-03-17] MEDS ORDERED: ACETAMINOPHEN 325 MG TABLET PO ONE (16:18)
[2018-03-17] MEDS ORDERED: LIDOCAINE 1% INJ-PF (10 MG/ML) 30 ML SDV INJ ONE (16:19)
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
[2018-03-17] MEDS ORDERED: CEPHALEXIN 500 MG CAPSULE PO ONE (18:01)
[2018-03-17 18:26] VITALS: BP 111/70
== END 2018-03-17 18:28 | disposition home or self-care (01) ==
LOC: ER 15:52
DX: S86.822A Laceration of other muscle(s) and tendon(s) at lower leg level, left leg, initial encounter (principal); S81.022A Laceration with foreign body, left knee, initial encounter; S00.81XA Abrasion of other part of head, initial encounter; V29.9XXA Motorcycle rider (driver) (passenger) injured in unspecified traffic accident, initial encounter; I10 Essential (primary) hypertension; J44.9 Chronic obstructive pulmonary disease, unspecified
CPT/HCPCS: 99283; 70150; 73564; 12032; J3490

== ENCOUNTER → 2018-03-30 | Outpatient (CLI) | payer MEDICARE, OTHER, MEDICAID ==
--- NOTE | 2018-03-31 11:08 | XCELERA REPORT ---
[address] [address] Lower Extremity Arterial Evaluation Name: JOSE ANTONIO BURGOS SR Age: 66 yrs Gender: Male : 09/07/1951 Patient Status: Outpatient Patient Location: Study Date: 03/30/2018 11:23 AM Procedure: A color flow and duplex scan of the lower extremity arteries was performed bilaterally with velocity and waveform anaylsis. Ankle brachial indicies performed. Reason For Study: ULCER Ordering Physician: KENNEDI FRANCISCO Performed By: Sonia Donaldson Measurements and Calculations Right Left RN POST PARTUM PSV 105.6 157.1 cm/sec Prox PFA PSV -128.9 -143.8 cm/sec Prox SFA PSV -66.8 -87.1 cm/sec Mid SFA PSV -102.0 cm/sec Dist SFA PSV -42.4 -161.1 cm/sec Prox Pop A PSV 29.1 65.9 cm/sec Prox SAWYER PSV 28.3 cm/sec Mid SAWYER PSV 25.5 cm/sec Dist SAWYER PSV 30.3 cm/sec Prox CRACKING STILL OPERATOR PSV 43.2 cm/sec Dist CRACKING STILL OPERATOR PSV 44.8 cm/sec Dist Alyssa A PSV 28.7 58.0 cm/sec Edy Pedis PSV -5.5 -30.9 cm/sec Right Side Arterial Evaluation Low normal velocity and biphasic waveforms noted in the Common Femoral artery . Occluded Femoral thereafter monophasic with diminished velocities to the infrageniculate vessels. 20-48 % stenosis at the Aorto Iliac inflow. Ankle Brachial index is 0.65. Left Side Arterial Evaluation Normal velocity and triphasic waveforms noted from the Common Femoral artery to the Popliteal. Biphasic Anterior Tibial, Occluded Posterior Tibial artery. 20-49 % stenosis at the Anterior Tibial artery. Ankle Brachial index is 0.97. Interpretation Summary Severe hemodynamically significant lesions in the right lower extremity only, on duplex imaging, at rest. Moderate hemodynamically significant lesions in the left lower extremity only, on duplex imaging, at rest. Good collaterals through the Peroneal artery may be present. On the left. : KENNEDI FRANCISCO > Kennedi Francisco
== END ==
LOC: SP 10:46
PROVIDERS: ATTEND Surgery
DX: L97.222 Non-pressure chronic ulcer of left calf with fat layer exposed (principal); I70.201 Unspecified atherosclerosis of native arteries of extremities, right leg
CPT/HCPCS: 93922; 93925

== ENCOUNTER → 2018-04-28 | Outpatient (CLI) | payer MEDICARE, MEDICAID ==
--- NOTE | 2018-04-28 13:21 | RADIOLOGY REPORT (SQ) ---
EXAM DESCRIPTION: NM MUGA REST COMPLETED DATE/TIME: 04/28/2018 12:14 pm REASON FOR STUDY: CARDIOMYOPATHY DUE TO DRUG AND EXTERNAL AGENT I42.7 CARDIOMYOPATHY DUE TO DRUG AN D EXTERNAL AGENT COMPARISON: CT chest 01/01/2018, 11/11/2017 RADIONUCLIDE AND DOSE: 25.8 mCi technetium 99m labeled red blood cells The route of agent administration: Intravenous TECHNIQUE: Following administration of the radionuclide, gated images of the heart are obtained in t hree projections. Left ventricular functional analysis performed. LIMITATIONS: None. FINDINGS: LEFT VENTRICULAR FUNCTION: EJECTION FRACTION: 72%. END-DIASTOLIC VOLUME: 78 mL. END-SYSTOLIC VOLUME: 20 mL. WALL MOTION: No focal wall motion abnormalities. OTHER: No other significant finding. IMPRESSION: NORMAL CARDIAC MUGA STUDY. NORMAL LEFT VENTRICULAR ejection fraction of 72%. TECHNICAL DOCUMENTATION: JOB ID: [id number] [employer]- All Rights Reserved Reading location - IP/workstation name: [email or web address]
== END ==
LOC: RAD 10:58
PROVIDERS: ATTEND Internal Medicine Medical Oncology
DX: T45.1X5A Adverse effect of antineoplastic and immunosuppressive drugs, initial encounter (principal); I42.7 Cardiomyopathy due to drug and external agent
CPT/HCPCS: 78472; A9538; Q9969

== ENCOUNTER → 2018-05-05 | Outpatient (CLI) | payer MEDICARE, MEDICAID ==
--- NOTE | 2018-05-05 14:24 | RADIOLOGY REPORT (SQ) ---
EXAM DESCRIPTION: NM WHOLE BODY BONE SCAN COMPLETED DATE/TIME: 05/05/2018 1:31 pm REASON FOR STUDY: PROSTATE CA (C61 C61 MALIGNANT NEOPLASM OF PROSTATE COMPARISON: No available imaging studies for comparison. RADIONUCLIDE AND DOSE: 22.0 millicuries Tc99m MDP. The route of agent administration: Intravenous. ADDITIONAL DRUGS AND DOSES: None. TECHNIQUE: Routine delayed images at 3 hour post radionuclide injection acquired of the bony skeleto n including anterior and posterior whole-body projections and additional focused images as needed. LIMITATIONS: None. FINDINGS: BONES: Multiple focal areas of increased uptake in the skull, spine, multiple ribs, pelvis , proximal femurs. KIDNEYS: Minimal excretion. OTHER: No other significant finding. IMPRESSION: Bone metastasis. COMMENT: Quality measure 147: Current bone scan is compared with any available plain radiographs, p rior bone scans, and CT/MRI. TECHNICAL DOCUMENTATION: JOB ID: [id number] [employer]- All Rights Reserved Reading location - IP/workstation name: [email or web address]
== END ==
LOC: RAD 08:29
PROVIDERS: ATTEND Internal Medicine Medical Oncology
DX: C61 Malignant neoplasm of prostate (principal)
CPT/HCPCS: 78306; A9561

== ENCOUNTER 2018-10-31 21:06 | Inpatient (IN) | payer MEDICARE, MEDICAID ==
[2018-10-31] MEDS ORDERED: RINGERS SOLUTION,LACTATED 1,000 ML IV ONE ×2 (21:31→23:30)
--- NOTE | 2018-10-31 22:09 | RADIOLOGY REPORT (SQ) ---
EXAM DESCRIPTION: XR CHEST 1 VIEW COMPLETED DATE/TME: 10/31/2018 21:30 CLINICAL HISTORY: 67 years, Male, cough COMPARISON: January 22, 2018 NUMBER OF VIEWS: One TECHNIQUE: AP view of the chest LIMITATIONS: None. FINDINGS: The lungs are hyperinflated but clear. There are no pleural abnormalities. The cardiac silhouette and pulmonary vessels are normal. Mediport from a left upper extremity approach is unchanged. Stable appearance of the bony thorax. Bilateral nephrostomy tubes are noted. IMPRESSION: No acute cardiopulmonary disease. copyright 2010 [employer]- All Rights Reserved
[2018-10-31] MEDS ORDERED: CEFEPIME 2 GM/D5W RTU 2 GM/50 ML RTUPB IV ONE (22:18)
--- NOTE | 2018-10-31 22:22 | ER Document Report ---
ED General - General Chief Complaint: General Weakness Stated Complaint: WEAKNESS,DECREASED APPETITE Time Seen by Provider: 10/31/18 21:29 Cannot obtain history due to: Altered mental status Notes: Patient is a 67-year-old male with a past medical history of metastatic prostate cancer, bilateral nephrostomy tubes secondary to this underlying malignancy, hypertension, presents by EMS due to gradual deterioration, and failure to thrive. History is limited as although the patient is oriented he is quite lethargic, provide minimal history. Family at bedside does not live with the patient, states the check on him several times weekly but that he has concealed much of his medical history from them. They report that the patient has not been eating over the past 1 week. They state other than that they are very c oncerned about his increasing frailty and state that he has taken a dramatic turn for the worse in the last 2-3 weeks. Patient reports that he last saw his oncologist Dr. Thacker in June, was told that there was no further therapies that can be offered and that he was in terminal condition. The patient denies any recorded fever at home. States that he is in pain everywhere. Nothing improves or worsens his symptoms. TRAVEL OUTSIDE OF THE [place] IN LAST 30 DAYS: No - Related Data Allergies/Adverse Reactions: procaine [From Novocain] Adverse Reaction (Verified 01/22/18 13:48) Past Medical History - General Information source: Patient, Relative Cannot obtain history due to: Altered mental status - Social History Smoking Status: Former Smoker Frequency of alcohol use: None Drug Abuse: None Lives with: Friend Family History: Hypertension, Malignancy - Past Medical History Cardiac Medical History: Reports: Hx Hypertension Pulmonary Medical History: Reports: Hx COPD Renal/ Medical History: Denies: Hx Peritoneal Dialysis Past Surgical History: Reports: Hx Kidney (Renal Surgery), Other - Bilateral nephrostomy tubes - Immunizations Hx Diphtheria, Pertussis, Tetanus Vaccination: Yes Review of Systems - Review of Systems Notes: Constitutional: Negative for fever. HENT: Negative for sore throat. Eyes: Negative for visual changes. Cardiovascular: Negative for chest pain. Respiratory: Negative for shortness of breath. Gastrointestinal: Positive for abdominal pain Genitourinary: Negative for dysuria. Musculoskeletal: Positive for diffuse musculoskeletal pain Skin: Negative for rash. Neurological: Negative for headaches, weakness or numbness. 10 point ROS negative except as marked above and in HPI. Physical Exam - Vital signs Vitals: Temp Pulse Resp Pulse Ox 99.6 F 100 19 100 10/31/18 21:16 10/31/18 21:16 10/31/18 21:16 10/31/18 21:16 Interpretation: Hypotensive, Tachycardic Notes: PHYSICAL EXAMINATION: GENERAL: Emaciated, cachectic, HEAD: Atraumatic, normocephalic. EYES: Pupils equal round and reactive to light, extraocular movements intact, sclera anicteric, conjunctiva are normal. ENT: nares patent, oropharynx clear without exudates. Dry mucous membranes. NECK: Normal range of motion, supple without lymphadenopathy LUNGS: Breath sounds clear to auscultation bilaterally and equal. No wheezes rales or rhonchi. HEART: Regular tachycardia without murmurs ABDOMEN: Soft, nontender, normoactive bowel sounds. No guarding, no rebound. No masses appreciated. EXTREMITIES: Normal range of motion, no pitting or edema. No cyanosis. NEUROLOGICAL: No focal neurological deficits. Moves all extremities spontaneously and on command. PSYCH: Lethargic, oriented x3 SKIN: Warm, Dry, normal turgor, bilateral nephrostomy tubes are in place, appears to be some drainage around the right nephrostomy tube site Course - Re-evaluation Re-evalutation: 10/31/18 22:19 Documentation is delayed as I been at the patient's bedside speaking with both him and his family at length about goals of care. In summary this is a 67-year-old man who presents extremely ill in appearance, cachectic, emaciated, quite lethargic although alert and oriented. The patient has been diagnosed as having stage IV prostate cancer that is terminal, was told approximate 3-4 months ago that he was not a candidate for any additional therapeutic options for his prostate cancer. He has bilateral nephrostomy tubes in place. Family reports that he has not been eating for the past 1 week. The patient himself appears extremely dehydrated, is noted to be tachycardic and hypotensive at time of presentation. He is able to answer all my questions but is quite delayed in his responses. The patient appears to have some mild displacement of both nephrostomy tubes, there is no drainage into the right tube, there is extremely purulent drainage into the left tube. I did discuss with the patient and family proceeding with therapeutic interventions including IV fluids, IV antibiotics, diagnostic tests. We did discuss that all these measures may prolong the patient's life but would not reverse the inevitable course of his terminal cancer and would not provide any increase in his quality of life. We discussed the alternative option of proceeding with comfort measures consisting of pain, nausea and anxiety control. The patient and his family spoke privately and did elect to proceed with IV fluids, IV antibiotics and hospitalization. They do not wish to proceed to comfort measures. They do understand that his underlying condition is terminal. Patient will begin receiving IV fluids, IV cefepime, chest x-ray, labs, urine study from left nephrostomy tube. 10/31/18 23:31 Laboratories show what appears to be likely chronic anemia, very low prealbumin, prerenal azotemia, hyponatremia. CT scan of the abdomen pelvis is pending to determine whether or not nephrostomy tubes are still in place. Urine from the left nephrostomy tube is grossly infected. Patient is already receiving cefepime. Ongoing IV fluids. Will continue to reassess at regular intervals. 11/01/18 00:48 I have discussed this case with Dr. Thacker who is in agreement with management. CT does show that the nephrostomy tubes are both in place. I have discussed with the family who understands the patient is terminal, is very accepting of his overall condition at this point. They state their main goal is to get him more comfortable, out of pain, and have services at home. They recognize that despite him having what appears to be hemorrhage from his prostate as well as a possible nonfunctioning right nephrostomy tube that he would not be an appropriate surgical candidate at this point. They do understand that we do not have urology at this hospital. I have discussed with Dr. Phillips who has accepted the patient for admission - Vital Signs Vital signs: Temp Pulse Resp BP Pulse Ox 99.6 F 100 14 95/60 L 97 10/31/18 21:16 10/31/18 21:16 11/01/18 01:11 11/01/18 01:11 11/01/18 01:11 - Laboratory Result Diagrams: 10/31/18 22:10 10/31/18 22:10 Laboratory results interpreted by me: 10/31/18 10/31/18 10/31/18 22:10 22:10 22:10 RBC 3.03 L Hgb 7.8 L Hct 23.3 L MCV 77 L MCH 25.8 L RDW 19.4 H Plt Count 79 L Band Neutrophils % 2 L Metamyelocytes % 1 H VBG pCO2 28.6 L VBG HCO3 17.4 L Sodium 125.2 L Chloride 92 L Carbon Dioxide 21 L BUN 45 H Creatinine 2.33 H Est GFR ( Amer) 34 L Est GFR (Non-Af Amer) 28 L Direct Bilirubin 0.5 H ALT 20 L Alkaline Phosphatase 393 H Total Protein 6.2 L Prealbumin 8.7 L Urine Protein Urine Blood Ur Leukocyte Esterase 10/31/18 22:10 RBC Hgb Hct MCV MCH RDW Plt Count Band Neutrophils % Metamyelocytes % VBG pCO2 VBG HCO3 Sodium Chloride Carbon Dioxide BUN Creatinine Est GFR ( Amer) Est GFR (Non-Af Amer) Direct Bilirubin ALT Alkaline Phosphatase Total Protein Prealbumin Urine Protein 100 H Urine Blood SMALL H Ur Leukocyte Esterase MODERATE H - Diagnostic Test Radiology reviewed: Image reviewed, Reports reviewed Radiology results interpreted by me: 11/01/18 00:49 Chest x-ray: No acute infiltrate or pneumothorax Critical Care Note - Critical Care Note Total time excluding time spent on procedures (mins): 40 Comments: Critical care time spent obtaining history from patient or surrogate, discussions with consultants, development of treatment plan with patient or surrogate, evaluation of patient's response to treatment, examination of patient, ordering and performing treatments and interventions, ordering and review of laboratory studies, re-evaluation of patient's condition, ordering and review of radiographic studies and review of old charts Discharge - Discharge Clinical Impression: Cachexia, Prostate cancer, Pyelonephritis Condition: Fair Disposition: ADMITTED INPATIENT Admitting Provider: Hospitalist Unit Admitted: Telemetry
[2018-10-31 22:34] LABS: VENOUS BLOOD BASE EXCESS -6.5 mmol/L; VENOUS BLOOD HCO3 17.4 mmol/L (20-32); VENOUS BLOOD PCO2 28.6 mmHg (35-63); VENOUS BLOOD PH 7.4 (7.30-7.42)
[2018-10-31 22:35] LABS: HEMATOCRIT 23.3 % (37.9-51.0); MEAN CORPUSCULAR HEMOGLOBIN 25.8 pg (27.0-33.4); MEAN CORPUSCULAR HGB CONC 33.6 g/dL (32.0-36.0); MEAN CORPUSCULAR VOLUME 77 fl (80-97); RED BLOOD COUNT 3.03 10^6/uL (4.35-5.55); RED CELL DISTRIBUTION WIDTH 19.4 % (11.5-14.0); WHITE BLOOD COUNT 6.2 10^3/uL (4.0-10.5)
[2018-10-31 22:46] LABS: ALANINE AMINOTRANSFERASE 20 U/L (21-72); ALBUMIN 3.9 g/dL (3.5-5.0); ALKALINE PHOSPHATASE 393 U/L (38-126); ANION GAP 12 (5-19); ASPARTATE AMINO TRANSFERASE 26 U/L (17-59); BILIRUBIN,DIRECT 0.5 mg/dL (0.0-0.4); BILIRUBIN,TOTAL 0.6 mg/dL (0.2-1.3); BLOOD UREA NITROGEN 45 mg/dL (7-20); CARBON DIOXIDE 21 mmol/L (22-30); CHLORIDE 92 mmol/L (98-107); GLUCOSE 85 mg/dL (75-110); SODIUM 125.2 mmol/L (137-145); TOTAL PROTEIN 6.2 g/dL (6.3-8.2)
[2018-10-31 22:53] LABS: PREALBUMIN 8.7 mg/dL (17.6-36.0)
[2018-10-31 22:55] LABS: PLATELET COUNT 79 10^3/uL (150-450)
[2018-10-31 23:09] LABS: BASOPHILS % (MANUAL) 0 % (0-2); EOSINOPHILS % (MANUAL) 0 % (0-6)
[2018-10-31 23:13] LABS: ABSOLUTE LYMPHOCYTES# (MANUAL) 0.9 10^3/uL (0.5-4.7); ABSOLUTE MONOCYTES # (MANUAL) 0.4 10^3/uL (0.1-1.4); ABSOLUTE NEUTROPHILS# (MANUAL) 4.9 10^3/uL (1.7-8.2); AMORPHOUS SEDIMENT,URINE 1+ /HPF; APPEARANCE,URINE TURBID; BAND NEUTROPHILS % (MANUAL) 2 % (3-5); BILIRUBIN,URINE NEGATIVE (NEGATIVE); COLOR,URINE YELLOW; GLUCOSE, URINE NEGATIVE (NEGATIVE); KETONES,URINE NEGATIVE (NEGATIVE); LEUKOCYTE ESTERASE,URINE MODERATE (NEGATIVE); LYMPHOCYTES % (MANUAL) 15 % (13-45); METAMYELOCYTES % (MANUAL) 1 % (0); MONOCYTES % (MANUAL) 6 % (3-13); NITRITE,URINE NEGATIVE (NEGATIVE); NUCLEATED RED BLOOD CELLS 1 /100 WBC (0); PLATELET COMMENT DECREASED; PROTEIN,URINE 100 mg/dL (NEGATIVE); SEGMENTED NEUTROPHILS % (MAN) 76 % (42-78); TOTAL CELLS COUNTED 100; URINE SPECIFIC GRAVITY 1.021; UROBILINOGEN,URINE NEGATIVE mg/dL (<2.0)
[2018-10-31 23:15] LABS: ANISOCYTOSIS 2+; OVALOCYTES SLIGHT; POIKILOCYTOSIS SLIGHT
[2018-10-31 23:16] LABS: PLATELET LARGE PRESENT; SCHISTOCYTES SLIGHT
[2018-10-31 23:19] LABS: HEMOGLOBIN 7.8 g/dL (13.5-17.0)
--- NOTE | 2018-11-01 00:15 | RADIOLOGY REPORT (SQ) ---
EXAM DESCRIPTION: CT ABDOMEN PELVIS WITHOUT IV CONTRAST COMPLETED DATE/TME: 10/31/2018 22:21 CLINICAL HISTORY: 67 years Male, eval nephrostomy tube positioning Comparison: None. Technique: No contrast. Coronal and sagittal reformat. This exam was performed according to our departmental dose-optimization program, which includes automated exposure control, adjustment of the mA and/or kV according to patient size and/or use of iterative reconstruction technique.[facility]: Dose Right [facility]: CareDose [facility]: Dose Right [facility]: Teradose 4D [facility]: [employer] LIMITATIONS: Arm position. No contrast. Findings: Bilateral nephrostomy tubes with tips at the bilateral renal parenchyma, as queried. Lobulated collection-lesion at the posterior and inferior urinary bladder measures 11 cm, 27 Hounsfield units. Multiple moderate dilation of the bilateral ureters. Extensive heterogeneous sclerosis throughout the skeleton. Renal scar/atrophy. Cholelithiasis. Normal appendix. Atherosclerotic vascular disease. Unenhanced lower thorax, abdominopelvic structures, and musculoskeleton appear otherwise grossly unremarkable. Impression: 1. Bilateral nephrostomy tubes with tips at the bilateral renal parenchyma. [id number] dilation of bilateral ureters, right more than left. 2. 11 cm lesion/hemorrhage at the posterior aspect of the urinary bladder and extensive skeletal sclerosis consistent with clinical history of prostate cancer and metastases. 3. Cholelithiasis.
[2018-11-01] MEDS ORDERED: MAG HYDROX/AL HYDROX/SIMETH SUSP 30 ML UDCUP PO PRN (01:34)
[2018-11-01] MEDS ORDERED: IPRATROPIUM/ALBUTEROL 0.5-2.5 MG/3 ML AMPUL NEB PRN (01:34)
[2018-11-01] MEDS ORDERED: FENTANYL 25 MCG/HR PATCH.TD72 TD ONE (01:38)
[2018-11-01] MEDS ORDERED: MORPHINE SULFATE 10 MG/ML INJ IV PRN (01:38)
[2018-11-01] MEDS: MORPHINE SULFATE 10 MG/ML INJ IV PRN ×2 (01:44→03:56)
--- NOTE | 2018-11-01 05:10 | PDOC H&P ---
History of Present Illness Admission Date/PCP: 11/01/18 01:17 YANICK WILSON MD Patient complains of: Disheveled with weakness History of Present Illness: JOSE ANTONIO BURGOS SR is a 67 year old male with a past medical history of metastatic prostate cancer requiring bilateral nephrostomy tubes who has been discharged from oncology 4 months ago given terminal status however had not adequately arranged hospice. He had been living independently with the assistan ce of his daughter until he has recently had a rapid decline prompting evaluation in the emergency room where he is found to have encephalopathy, pancytopenia profound cachexia with a BMI of 13. Patient complains of widespread intractable pain. He receives IV morphine by emergency room provider and he is daughter at bedside reiterates the patient's wishes as DNR requesting hospice. He is referred to the hospitalist for pain management and coordination of hospice. Past Medical History Cardiac Medical History: Reports: Hypertension Pulmonary Medical History: Reports: Chronic Obstructive Pulmonary Disease (COPD) Hematology: Reports: Anemia Past Surgical History Past Surgical History: Reports: Other - Bilateral nephrostomy tubes Social History Information Source: Patient Lives with: Friend Smoking Status: Former Smoker Frequency of Alcohol Use: None Drugs: Marijuana - Advance Directive Resuscitation Status: Do Not Resuscitate Family History Family History: Hypertension, Malignancy Parental Family History Reviewed: No - Unobtainable Children Family History Reviewed: No - Unobtainable Sibling(s) Family History Reviewed.: No - Unobtainable Medication/Allergy Home Medications: Bicalutamide [Casodex 50 mg Tablet] 50 mg PO DAILY 11/12/17 Esomeprazole Magnesium [Nexium] 40 mg PO QAM@0630 11/12/17 Prednisone [Deltasone 5 mg Tablet] 5 mg PO DAILY 11/12/17 Lidocaine [Lidoderm 5% (700 mg) Transdermal Patch] 2 patch TP DAILY #10 adh..patch 11/14/17 Oxycodone HCl/Acetaminophen [Endocet 5-325 Tablet] 1 tab PO Q6HP PRN #10 tablet 11/14/17 Nitrofurantoin/Nitrofuran Mac [Macrobid 100 mg Capsule] 100 mg PO BID #20 capsu le 01/22/18 Cephalexin Monohydrate [Keflex 500 mg Capsule] 500 mg PO Q6H 7 Days capsule 03/17/18 Allergies/Adverse Reactions: procaine [From Novocain] Adverse Reaction (Verified 01/22/18 13:48) Review of Systems ROS unobtainable: Due to mental status Physical Exam Vital Signs: Temp Pulse Resp BP Pulse Ox 98.0 F 100 14 95/60 L 97 11/01/18 01:35 10/31/18 21:16 11/01/18 01:11 11/01/18 01:11 11/01/18 01:11 Intake & Output 10/30/18 10/31/18 11/01/18 11:59 11:59 11:59 Intake Total 2049 Balance 2049 Weight 54.5 kg General appearance: PRESENT: mild distress, thin, other - Profoundly cachectic with temporal wasting Head exam: PRESENT: atraumatic, normocephalic Eye exam: PRESENT: conjunctiva pale, EOMI, nystagmus Ear exam: PRESENT: normal external ear exam Mouth exam: PRESENT: dry mucosa, tongue midline Neck exam: ABSENT: carotid bruit, JVD, lymphadenopathy, thyromegaly Respiratory exam: PRESENT: accessory muscle use, crackles, prolonged expiratory phas, retraction Cardiovascular exam: PRESENT: bradycardia. ABSENT: clicks, diastolic murmur, gallop Pulses: PRESENT: normal carotid pulses Vascular exam: PRESENT: normal capillary refill GI/Abdominal exam: PRESENT: diminished bowel sounds, firm, normal bowel sounds, soft. ABSENT: distended, guarding, mass, organolmegaly, rebound, tenderness Rectal exam: PRESENT: deferred Extremities exam: PRESENT: full ROM. ABSENT: calf tenderness, clubbing, pedal edema Neurological exam: PRESENT: altered, oriented to person. ABSENT: oriented to time, CN II-XII grossly intact Psychiatric exam: PRESENT: appropriate affect, normal mood. ABSENT: homicidal ideation, suicidal ideation Skin exam: PRESENT: dry, intact, warm. ABSENT: cyanosis, rash Results Laboratory Results: 10/31/18 22:10 10/31/18 22:10 10/31/18 10/31/18 10/31/18 22:10 22:10 22:10 WBC 6.2 RBC 3.03 L Hgb 7.8 L Hct 23.3 L MCV 77 L MCH 25.8 L MCHC 33.6 RDW 19.4 H Plt Count 79 L Seg Neutrophils % Not Reportable Lymphocytes % Not Reportable Monocytes % Not Reportable Eosinophils % Not Reportable Basophils % Not Reportable Absolute Neutrophils Not Reportable Absolute Lymphocytes Not Reportable Absolute Monocytes Not Reportable Absolute Eosinophils Not Reportable Absolute Basophils Not Reportable VBG pH VBG pCO2 VBG HCO3 VBG Base Excess Sodium 125.2 L Potassium 5.0 Chloride 92 L Carbon Dioxide 21 L Anion Gap 12 BUN 45 H Creatinine 2.33 H Est GFR ( Amer) 34 L Est GFR (Non-Af Amer) 28 L Glucose 85 Lactic Acid 1.0 Calcium 9.0 Total Bilirubin 0.6 AST 26 ALT 20 L Alkaline Phosphatase 393 H Total Protein 6.2 L Albumin 3.9 Prealbumin 8.7 L Urine Color Urine Appearance Urine pH Ur Specific [place] Urine Protein Urine Glucose (UA) Urine Ketones Urine Blood Urine Nitrite Ur Leukocyte Esterase Urine WBC (Auto) 10/31/18 10/31/18 22:10 22:10 WBC RBC Hgb Hct MCV MCH MCHC RDW Plt Count Seg Neutrophils % Lymphocytes % Monocytes % Eosinophils % Basophils % Absolute Neutrophils Absolute Lymphocytes Absolute Monocytes Absolute Eosinophils Absolute Basophils VBG pH 7.40 VBG pCO2 28.6 L VBG HCO3 17.4 L VBG Base Excess -6.5 Sodium Potassium Chloride Carbon Dioxide Anion Gap BUN Creatinine Est GFR ( Amer) Est GFR (Non-Af Amer) Glucose Lactic Acid Calcium Total Bilirubin AST ALT Alkaline Phosphatase Total Protein Albumin Prealbumin Urine Color YELLOW Urine Appearance TURBID Urine pH 7.0 Ur Specific [place] 1.021 Urine Protein 100 H Urine Glucose (UA) NEGATIVE Urine Ketones NEGATIVE Urine Blood SMALL H Urine Nitrite NEGATIVE Ur Leukocyte Esterase MODERATE H Urine WBC (Auto) >182 Impressions: Chest X-Ray 10/31/18 21:30 IMPRESSION: No acute cardiopulmonary disease. copyright 2011 [employer]- All Rights Reserved Assessment & Plan - Diagnosis (1) Prostate cancer Is this a current diagnosis for this admission?: Yes Plan: Terminal prostate cancer requiring bilateral nephrostomy tubes. Not a candidate for further invasive management. Supportive care, pain control and hospice consult (2) Cachexia Is this a current diagnosis for this admission?: Yes Plan: Secondary to #1 (3) Pyelonephritis Is this a current diagnosis for this admission?: Yes Plan: Secondary to #1, not a candidate for transfer or further urologic procedure given unstable state and eminent demise. - Time Time Spent: 50 to 70 Minutes - Inpatient Certification Medical Necessity: Need Close Monitoring Due to Risk of Patient Decompensation
[2018-11-01 06:53] LABS: ABSOLUTE LYMPHOCYTES (AUTO) 0.8 10^3/uL (0.5-4.7); ABSOLUTE MONOCYTES (AUTO) 0.2 10^3/uL (0.1-1.4); ABSOLUTE NEUT (AUTO) 3.6 10^3/uL (1.7-8.2); BASOPHILS % (AUTO) 0.3 % (0-2); EOSINOPHILS % (AUTO) 0.1 % (0-6); HEMATOCRIT 18.9 % (37.9-51.0); MEAN CORPUSCULAR HEMOGLOBIN 25.6 pg (27.0-33.4); MEAN CORPUSCULAR VOLUME 78 fl (80-97); RED BLOOD COUNT 2.44 10^6/uL (4.35-5.55); RED CELL DISTRIBUTION WIDTH 19.6 % (11.5-14.0); SEGMENTED NEUTROPHILS % (AUTO) 77.6 % (42-78); TOTAL CELLS COUNTED % (AUTO) 100 %; WHITE BLOOD COUNT 4.6 10^3/uL (4.0-10.5)
[2018-11-01 07:00] LABS: ALANINE AMINOTRANSFERASE 23 U/L (21-72); ALBUMIN 2.8 g/dL (3.5-5.0); ALKALINE PHOSPHATASE 292 U/L (38-126); ANION GAP 7 (5-19); ASPARTATE AMINO TRANSFERASE 20 U/L (17-59); BILIRUBIN,DIRECT 0.3 mg/dL (0.0-0.4); BILIRUBIN,TOTAL 0.4 mg/dL (0.2-1.3); BLOOD UREA NITROGEN 38 mg/dL (7-20); CALCIUM 7.8 mg/dL (8.4-10.2); CARBON DIOXIDE 21 mmol/L (22-30); CHLORIDE 101 mmol/L (98-107); GLUCOSE 81 mg/dL (75-110); POTASSIUM 4.5 mmol/L (3.6-5.0); SODIUM 128.7 mmol/L (137-145); TOTAL PROTEIN 4.8 g/dL (6.3-8.2)
[2018-11-01 07:13] LABS: HEMOGLOBIN 6.2 g/dL (13.5-17.0)
[2018-11-01 08:15] LABS: PLATELET COUNT 57 10^3/uL (150-450)
[2018-11-01] MEDS: DOCUSATE SODIUM 100 MG CAPSULE PO SCH ×2 (10:05→17:22)
[2018-11-01] MEDS ORDERED: NORMAL SALINE 250 ML IV PRN ×2 (11:17)
[2018-11-01] MEDS ORDERED: NORMAL SALINE 1000 ML 1,000 ML IV ONE (11:30)
--- NOTE | 2018-11-01 12:30 | Progress Note ---
Provider Note Provider Note: patient admitted after midnight. please see H&P for full A&P i briefly saw patient today- he's lethargic- oriented to name and . didn't answer my questions much as he kept closing his eyes. i did not do a full exam at this time i called and spoke with daughter Criss - discussed about his care. states her family members are coming tomorrow and they will have a long discussion about his prognosis and CODE status. he will remain DNR/DNI per daughter. i asked her about blood transfusion due to low Hb and she agrees verbally over the phone. patient was not completely oriented but he also agrees to blood transfusion.
[2018-11-01] MEDS ORDERED: ACETAMINOPHEN 325 MG TABLET PO PRN (13:48)
[2018-11-01 21:23] LABS: ANION GAP 6 (5-19); BLOOD UREA NITROGEN 36 mg/dL (7-20); CALCIUM 8.4 mg/dL (8.4-10.2); CARBON DIOXIDE 21 mmol/L (22-30); CHLORIDE 100 mmol/L (98-107); GLUCOSE 92 mg/dL (75-110); POTASSIUM 4.6 mmol/L (3.6-5.0); SODIUM 126.8 mmol/L (137-145)
[2018-11-01 21:27] LABS: ABSOLUTE LYMPHOCYTES (AUTO) 0.7 10^3/uL (0.5-4.7); ABSOLUTE MONOCYTES (AUTO) 0.2 10^3/uL (0.1-1.4); BASOPHILS % (AUTO) 0.5 % (0-2); EOSINOPHILS % (AUTO) 0.1 % (0-6); HEMATOCRIT 30.2 % (37.9-51.0); LYMPHOCYTES % (AUTO) 14.5 % (13-45); MEAN CORPUSCULAR HEMOGLOBIN 27.2 pg (27.0-33.4); MEAN CORPUSCULAR HGB CONC 33.9 g/dL (32.0-36.0); MEAN CORPUSCULAR VOLUME 80 fl (80-97); MONOCYTES % (AUTO) 4.5 % (3-13); RED BLOOD COUNT 3.77 10^6/uL (4.35-5.55); SEGMENTED NEUTROPHILS % (AUTO) 80.4 % (42-78); TOTAL CELLS COUNTED % (AUTO) 100 %
[2018-11-01 21:28] LABS: HEMOGLOBIN 10.3 g/dL (13.5-17.0); PLATELET COUNT 50 10^3/uL (150-450)
[2018-11-02 06:47] LABS: ABSOLUTE LYMPHOCYTES (AUTO) 0.6 10^3/uL (0.5-4.7); ABSOLUTE MONOCYTES (AUTO) 0.2 10^3/uL (0.1-1.4); ABSOLUTE NEUT (AUTO) 3.5 10^3/uL (1.7-8.2); BASOPHILS % (AUTO) 0.5 % (0-2); EOSINOPHILS % (AUTO) 0.2 % (0-6); HEMATOCRIT 29.8 % (37.9-51.0); HEMOGLOBIN 10.1 g/dL (13.5-17.0); LYMPHOCYTES % (AUTO) 14.5 % (13-45); MEAN CORPUSCULAR HGB CONC 33.8 g/dL (32.0-36.0); MEAN CORPUSCULAR VOLUME 80 fl (80-97); MONOCYTES % (AUTO) 5.2 % (3-13); RED BLOOD COUNT 3.74 10^6/uL (4.35-5.55); RED CELL DISTRIBUTION WIDTH 17.9 % (11.5-14.0); SEGMENTED NEUTROPHILS % (AUTO) 79.6 % (42-78); TOTAL CELLS COUNTED % (AUTO) 100 %; WHITE BLOOD COUNT 4.4 10^3/uL (4.0-10.5)
[2018-11-02 07:01] LABS: ALANINE AMINOTRANSFERASE 26 U/L (21-72); ALBUMIN 2.9 g/dL (3.5-5.0); ALKALINE PHOSPHATASE 290 U/L (38-126); ANION GAP 7 (5-19); ASPARTATE AMINO TRANSFERASE 26 U/L (17-59); BILIRUBIN,DIRECT 0.4 mg/dL (0.0-0.4); BILIRUBIN,TOTAL 0.8 mg/dL (0.2-1.3); BLOOD UREA NITROGEN 34 mg/dL (7-20); CALCIUM 8.5 mg/dL (8.4-10.2); CARBON DIOXIDE 21 mmol/L (22-30); CHLORIDE 101 mmol/L (98-107); GLUCOSE 92 mg/dL (75-110); POTASSIUM 4.2 mmol/L (3.6-5.0); SODIUM 128.9 mmol/L (137-145); TOTAL PROTEIN 5.1 g/dL (6.3-8.2)
[2018-11-02 07:10] LABS: PLATELET COUNT 49 10^3/uL (150-450)
[2018-11-02] MEDS ORDERED: MORPHINE SULFATE 10 MG/ML INJ IV PRN (07:33)
[2018-11-02] MEDS: NORMAL SALINE 1000 ML 1,000 ML IV PRN (09:30)
[2018-11-02] MEDS: DOCUSATE SODIUM 100 MG CAPSULE PO SCH ×2 (10:51→18:49)
[2018-11-02 12:39] LABS: AMORPHOUS SEDIMENT,URINE TRACE /HPF; APPEARANCE,URINE TURBID; BILIRUBIN,URINE NEGATIVE (NEGATIVE); COLOR,URINE YELLOW; GLUCOSE, URINE NEGATIVE (NEGATIVE); KETONES,URINE NEGATIVE (NEGATIVE); LEUKOCYTE ESTERASE,URINE LARGE (NEGATIVE); NITRITE,URINE NEGATIVE (NEGATIVE); PROTEIN,URINE >=500 mg/dL (NEGATIVE); URINE SPECIFIC GRAVITY 1.014; UROBILINOGEN,URINE NEGATIVE mg/dL (<2.0)
--- NOTE | 2018-11-02 17:59 | Progress Note ---
Provider Note Provider Note: I was asked to review this patient's CT scan by Dr. Torres (from the hospitalist service). This is a patient with a history of prostate cancer. He has obvious bladder obstruction. His nephrostomy tubes are dysfunctional. He has hemorrhage within the bladder. I recommend urgent urology referral for possible suprapubic catheter placement. This has been communicated to Dr. Torres. At this time, I have nothing to offer the patient. I will sign off.
[2018-11-02] MEDS ORDERED: NORMAL SALINE 500 ML IV ONE (19:30)
--- NOTE | 2018-11-02 19:30 | PDOC PROGRESS REPORT ---
Subjective Progress Note for:: 11/02/18 Subjective:: So patient this morning he was somewhat lethargic. I try to explain to patient that his prognosis is not poor and the fact that he has low blood pressure along with low hemoglobin and possible hemorrhage in the bladder that is difficult to manage him without aggressive care. Fortunately patient did not seem to understand or comprehend the complexity of his condition right now. He became upset at me that I am trying to tell him about his medical problem. He kept telling me I know I am going to . Reason For Visit: UTI ARF ANEMIA TERMINAL PROSTATE CANCER Physical Exam Vital Signs: Temp Pulse Resp BP Pulse Ox 97.4 F 70 16 84/50 L 100 11/02/18 15:02 11/02/18 15:02 11/02/18 17:25 11/02/18 17:25 11/02/18 15:02 Intake & Output 11/01/18 11/02/18 11/03/18 06:59 06:59 06:59 Intake Total 2049 2346 222 Balance 2049 234 222 Weight 120 lb 2.431 oz 145 lb 11.609 oz General appearance: PRESENT: no acute distress, other - Frail and ill-appearing Head exam: PRESENT: atraumatic, normocephalic Eye exam: PRESENT: other - Pupils are pinpoint. ABSENT: scleral icterus Ear exam: PRESENT: normal external ear exam Mouth exam: PRESENT: tongue midline Neck exam: ABSENT: tracheal deviation Respiratory exam: PRESENT: clear to auscultation darrel, symmetrical Cardiovascular exam: PRESENT: +S1, +S2 Pulses: PRESENT: +2 pedal pulses bilateral GI/Abdominal exam: PRESENT: normal bowel sounds, soft. ABSENT: tenderness Gentrourinary exam: PRESENT: other - Bilateral nephrostomy tube noted in the back Extremities exam: ABSENT: pedal edema Neurological exam: PRESENT: altered, oriented to person, other. ABSENT: orie nted to place, oriented to time, oriented to situation Psychiatric exam: PRESENT: flat affect Skin exam: PRESENT: dry, warm Results Laboratory Results: 11/02/18 06:30 11/02/18 06:30 11/01/18 11/01/18 11/02/18 20:55 20:55 06:30 WBC 5.0 4.4 RBC 3.77 L 3.74 L Hgb 10.3 L D 10.1 L Hct 30.2 L 29.8 L MCV 80 80 MCH 27.2 27.0 MCHC 33.9 33.8 RDW 18.0 H 17.9 H Plt Count 50 L 49 L Seg Neutrophils % 80.4 H 79.6 H Lymphocytes % 14.5 14.5 Monocytes % 4.5 5.2 Eosinophils % 0.1 0.2 Basophils % 0.5 0.5 Absolute Neutrophils 4.0 3.5 Absolute Lymphocytes 0.7 0.6 Absolute Monocytes 0.2 0.2 Absolute Eosinophils 0.0 0.0 Absolute Basophils 0.0 0.0 Sodium 126.8 L Potassium 4.6 Chloride 100 Carbon Dioxide 21 L Anion Gap 6 BUN 36 H Creatinine 1.65 H Est GFR ( Amer) 51 L Est GFR (Non-Af Amer) 42 L Glucose 92 Calcium 8.4 Total Bilirubin AST ALT Alkaline Phosphatase Total Protein Albumin Urine Color Urine Appearance Urine pH Ur Specific [place] Urine Protein Urine Glucose (UA) Urine Ketones Urine Blood Urine Nitrite Ur Leukocyte Esterase Urine WBC (Auto) Urine RBC (Auto) 11/02/18 11/02/18 06:30 12:00 WBC RBC Hgb Hct MCV MCH MCHC RDW Plt Count Seg Neutrophils % Lymphocytes % Monocytes % Eosinophils % Basophils % Absolute Neutrophils Absolute Lymphocytes Absolute Monocytes Absolute Eosinophils Absolute Basophils Sodium 128.9 L Potassium 4.2 Chloride 101 Carbon Dioxide 21 L Anion Gap 7 BUN 34 H Creatinine 1.57 H Est GFR ( Amer) 54 L Est GFR (Non-Af Amer) 44 L Glucose 92 Calcium 8.5 Total Bilirubin 0.8 AST 26 ALT 26 Alkaline Phosphatase 290 H Total Protein 5.1 L Albumin 2.9 L Urine Color YELLOW Urine Appearance TURBID Urine pH 7.0 Ur Specific [place] 1.014 Urine Protein >=500 H Urine Glucose (UA) NEGATIVE Urine Ketones NEGATIVE Urine Blood MODERATE H Urine Nitrite NEGATIVE Ur Leukocyte Esterase LARGE H Urine WBC (Auto) >182 Urine RBC (Auto) 20 Impressions: Chest X-Ray 10/31/18 21:30 IMPRESSION: No acute cardiopulmonary disease. copyright 2011 [employer]- All Rights Reserved Assessment & Plan - Diagnosis (1) Dehydration Is this a current diagnosis for this admission?: Yes Plan: Continue with IV fluids as needed. (2) Metastatic cancer Is this a current diagnosis for this admission?: Yes Plan: See plan for prostate cancer (3) Cachexia Is this a current diagnosis for this admission?: Yes Plan: Likely secondary to cancer with metastases. (4) Prostate cancer Is this a current diagnosis for this admission?: Yes Plan: As per chart he was following oncology but in the last 4 months he has not. He has not had any more chemo or radiation. I have not been able to get a good history from him since he is altered. Been living with his daughter and there was some talk about hospice but nothing has been clarified. I spoke with the daughter today and she is upset that she is a lot of stressors in her life. She is awaiting her siblings to come from out of town so they can make a decision. In the meantime she wants me to continue help with his blood pressure and his hemoglobin as needed. Did talk to her about this hemorrhage in the bladder that is showing on CT of the abdomen pelvis and I have consulted surgery regarding it but unfortunately it seems that he would need a suprapubic catheter per surgical evaluation of the CAT scan. I spoke to daughter about possibly moving out of the hospital to a higher level of care with a urologist is available but daughter at this time now says that it is not needed. She understands that he can if we do not get up to the appropriate facility but she declined. She tells me that please continue with IV fluids and hydration and blood transfusion needed until the siblings arrive and they will make a decision. She tells me that my father would most likely be comfort or hospice care once he sees his other kids. (5) Acute blood loss anemia Is this a current diagnosis for this admission?: Yes Plan: Hemoglobin was less than 7 yesterday and he was transfused 2 units of blood and 2 days 10. I am not so sure where his bleeding is but his CT of the abdomen did show questionable hemorrhage into the bladder. He has no signs of acute bleed at this time. (6) Hypotension Is this a current diagnosis for this admission?: Yes Plan: Likely secondary to dehydration versus his deconditioned state secondary to his cancer. As per daughter his systolic blood pressure is always in the 90s to high 80s. Given a bolus of IV fluids. We will continue to monitor. If daughter wants to continue to treat then we may have to move into the ICU for pressors and I have told her that. But she has told me to give him some IV fluid and see if it improves. She tells me that she is in the medical field and she understands what I am talking about.
[2018-11-03] MEDS: NORMAL SALINE 1000 ML 1,000 ML IV PRN (05:31)
--- NOTE | 2018-11-03 10:02 | PDOC CONSULTATION ---
Consultation Consult Date: 11/03/18 Consult reason:: Hematology Oncology consultation was requested for patient with prostate cancer and pancytopenia. History of Present Illness Admission Date/PCP: 11/01/18 01:17 YANICK WILSON MD History of Present Illness: JOSE ANTONIO BURGOS SR is a 67 year old male who was followed by Dr. Wilson for metastatic prostate cancer until about 2 months ago. He states that Dr. Wilson gave up and would not give him any ore treatment. He states he does not understand why she would no longer treat him. His daughter from [place] is at bedside today and states that patient only told her last week that he had stopped his treatments. She reports that he has not been eating over the last few weeks and presented to the ED in severe pain. Hospice consult was discussed in the ED and he was admitted to help with pain control and to arrange Hospice services at home. However, this morning, patient states that he is unsure what his options for further treatment are. He does not know what treatments he has had in the past. However, he believes last treatment was at least 2 months ago. In the ED, he was evaluated for his bilateral urostomy tubes and it appears that these are no longer functioning properly. He is unsure who he has seen for urology in the past, but we currently do not have a urologist who can see him in the hospital. He is currently denying flank pain or hematuria. Past Medical History Cardiac Medical History: Reports: Hypertension Pulmonary Medical History: Reports: Chronic Obstructive Pulmonary Disease (COPD) Hematology: Reports: Anemia Past Surgical History Past Surgical History: Reports: Other - Bilateral nephrostomy tubes Social History Lives with: Friend Smoking Status: Former Smoker Frequency of Alcohol Use: None Drugs: Marijuana - Advance Directive Resuscitation Status: Do Not Resuscitate Family History Family History: Hypertension, Malignancy Parental Family History Reviewed: Yes Children Family History Reviewed: Yes Sibling(s) Family History Reviewed.: No Medication/Allergy Home Medications: Oxycodone HCl/Acetaminophen [Percocet 10-325 Mg Tablet] 1 tab PO Q8 11/01/18 Allergies/Adverse Reactions: procaine [From Novocain] Adverse Reaction (Verified 01/22/18 13:48) Review of Systems Constitutional: PRESENT: weight loss. ABSENT: fever(s) Nose, Mouth, and Throat: PRESENT: sore throat Respiratory: PRESENT: other - Heavy breathing at times.. ABSENT: cough Gastrointestinal: PRESENT: nausea. ABSENT: diarrhea Genitourinary: ABSENT: dysuria, hematuria Integumentary: ABSENT: rash Neurological: PRESENT: weakness Hematologic/Lymphatic: ABSENT: easy bleeding Physical Exam Vital Signs: Temp Pulse Resp BP Pulse Ox 97.9 F 80 12 82/47 L 98 11/03/18 08:11 11/03/18 08:11 11/03/18 08:11 11/03/18 08:11 11/03/18 08:11 Intake & Output 11/02/18 11/03/18 11/04/18 06:59 06:59 06:59 Intake Total 2346 2526 Balance 2346 2526 Weight 66.1 kg 72.8 kg General appearance: PRESENT: thin Exam: 67 year old male. Head exam: PRESENT: normocephalic Eye exam: PRESENT: EOMI Mouth exam: PRESENT: tongue midline, other - Thrush on tongue Neck exam: ABSENT: lymphadenopathy, tenderness Respiratory exam: PRESENT: clear to auscultation darrel, unlabored Cardiovascular exam: PRESENT: RRR GI/Abdominal exam: PRESENT: soft, other - Urostomy tubes in place, but do not appear to be functioning.. ABSENT: organolmegaly, tenderness Extremities exam: ABSENT: pedal edema Neurological exam: PRESENT: alert, awake Psychiatric exam: PRESENT: appropriate affect, other - Asks appropriate questions, but is poor historian. Focused psych exam: ABSENT: restlessness Skin exam: PRESENT: normal color Results Laboratory Results: 11/02/18 06:30 11/02/18 06:30 11/02/18 12:00 Urine Color YELLOW Urine Appearance TURBID Urine pH 7.0 Ur Specific [place] 1.014 Urine Protein >=500 H Urine Glucose (UA) NEGATIVE Urine Ketones NEGATIVE Urine Blood MODERATE H Urine Nitrite NEGATIVE Ur Leukocyte Esterase LARGE H Urine WBC (Auto) >182 Urine RBC (Auto) 20 Impressions: Chest X-Ray 10/31/18 21:30 IMPRESSION: No acute cardiopulmonary disease. copyright 2010 [employer]- All Rights Reserved Status: Image reviewed by me - I discussed CT reports and comparison films with Dr. Mitchell Assessment & Plan - Diagnosis (1) Prostate cancer Is this a current diagnosis for this admission?: Yes Plan: I have requested records from Dr. Wilson to see what treatments he has had to date. (2) Anemia Qualifiers: Anemia type: unspecified type Qualified Code(s): D64.9 - Anemia, unspecified Is this a current diagnosis for this admission?: Yes Plan: He responded well to RBC transfusion. I will order anemia panel and search for cause. I have explained that if this is bone marrow failure due to prostate cancer, then prognosis is very poor. (3) Thrombocytopenia Is this a current diagnosis for this admission?: Yes Plan: Platelets are <50. Would NOT use any anticoagulation at this level. Again, search for cause has been initiated, but this may be due to the cancer. (4) Dehydration Is this a current diagnosis for this admission?: Yes Plan: His Cr and electrolytes are looking better after IV fluids. (5) Thrush, oral Is this a current diagnosis for this admission?: Yes Plan: Will give diflucan 100 mg daily x 3 days to see if this helps. (6) Weight loss Is this a current diagnosis for this admission?: Yes Plan: Family has requested an appetite stimulant. I will discuss this further with them. - Plan Summary Plan Summary: I have arranged for Hospice educational visit. I also have family meeting planed for 12:30 pm today. I will discuss all findings and recommendations for the Prostate cancer at that point. I discussed his care with Dr. Torres as well. He had offered transfer to another center for further treatment of the urostomy blockages. Family initially declined. I will discuss again.
[2018-11-03 11:22] LABS: IRON(TIBC) 31.1 ug/dL (49-181)
[2018-11-03 11:31] LABS: ABSOLUTE RETICS # 0.023 10^6/uL (0.028-0.122); RETICULOCYTE COUNT (AUTO) 0.63 % (0.66-2.85)
[2018-11-03] MEDS: FLUCONAZOLE 100 MG TABLET PO SCH (11:41)
[2018-11-03] MEDS: DOCUSATE SODIUM 100 MG CAPSULE PO SCH ×2 (11:41→18:00)
[2018-11-03] MEDS: CEFEPIME 1 GM/D5W RTU 1 GM/50 ML RTUPB IV SCH (11:42)
[2018-11-03 12:29] LABS: FOLATE 3.57 ng/mL (>2.76)
--- NOTE | 2018-11-03 16:35 | PDOC PROGRESS REPORT ---
Subjective Progress Note for:: 11/03/18 Subjective:: Spoke with both daughters at bedside along with patient. Spoke with patient and he tells me that all his body hurts everywhere. He has no focal area of pain. He denies chest pain, shortness of breath, abdominal pain, nausea/vomiting or dizziness. He is laying in the bed under the covers and barely opens his eyes. Reason For Visit: UTI ARF ANEMIA TERMINAL PROSTATE CANCER Physical Exam Vital Signs: Temp Pulse Resp BP Pulse Ox 98.7 F 84 14 84/48 L 94 11/03/18 12:20 11/03/18 14:35 11/03/18 14:35 11/03/18 12:20 11/03/18 14:35 Intake & Output 11/02/18 11/03/18 11/04/18 06:59 06:59 06:59 Intake Total 2346 2526 50 Balance 2346 2526 50 Weight 145 lb 11.609 oz 160 lb 7.944 oz General appearance: PRESENT: no acute distress, other - Frail and ill-appearing. Cachectic Head exam: PRESENT: atraumatic, normocephalic Eye exam: PRESENT: EOMI. ABSENT: conjunctival injection, scleral icterus Ear exam: PRESENT: normal external ear exam Mouth exam: PRESENT: moist, tongue midline Neck exam: ABSENT: tracheal deviation Respiratory exam: PRESENT: decreased breath sounds - Decreased breath sound bilaterally most likely due to poor inspiratory effort, symmetrical Cardiovascular exam: PRESENT: +S1, +S2 Pulses: PRESENT: +2 pedal pulses bilateral GI/Abdominal exam: PRESENT: normal bowel sounds, soft. ABSENT: tenderness Gentrourinary exam: PRESENT: other - Bilateral nephrostomy tubes noted Extremities exam: ABSENT: pedal edema Neurological exam: PRESENT: awake, oriented to person, oriented to place, CN II-XII grossly intact Skin exam: PRESENT: dry, warm Results Laboratory Results: 11/02/18 06:30 11/02/18 06:30 11/03/18 11/03/18 11/03/18 10:38 10:38 10:38 Retic Count (auto) 0.63 L Absolute Retic 0.023 L Iron 31.1 L TIBC 196 L % Saturation 16 Ferritin 521.00 H Prostate Specific Ag > 2000.000 H Vitamin B12 967.0 H Folate 3.57 Impressions: Chest X-Ray 10/31/18 21:30 IMPRESSION: No acute cardiopulmonary disease. copyright 2010 [employer]- All Rights Reserved Assessment & Plan - Diagnosis (1) Dehydration Is this a current diagnosis for this admission?: Yes Plan: Continue with IV fluids (2) Metastatic cancer Is this a current diagnosis for this admission?: Yes Plan: See plan for prostate cancer (3) Cachexia Is this a current diagnosis for this admission?: Yes Plan: Likely secondary to cancer with metastases. (4) Prostate cancer Is this a current diagnosis for this admission?: Yes Plan: At this time there is no plan for further therapy from oncology perspective as he is very weak and debilitated. I do not think he can withstand round of chemo or radiation or any type of oncology therapy. I spoke with Dr. Castro about his care and I appreciate her assistance. She is working him up for his thrombocytopenia. I spoke with daughters today and they want to continue with IV fluids antibiotics at this time. CAT scan of the abdomen did show some hemorrhage into the bladder and was recommended for transfer and further intervention but family had declined. After talking to the daughter it seems they are gradually leaning towards hospice at home until he is stronger and able to restart oncology therapy for his cancer. (5) Acute blood loss anemia Is this a current diagnosis for this admission?: Yes Plan: Hemoglobin was less than 7 and he was transfused 2 units of blood. Hemoglobin stable at this time. I am not so sure where his bleeding is but his CT of the abdomen did show questionable hemorrhage into the bladder. He has no signs of acute bleed at this time. Surgery evaluated patient and believe that he needs urology consultation but family has declined at this time. We will repeat his blood work in the morning and check his levels again. (6) Hypotension Is this a current diagnosis for this admission?: Yes Plan: Likely secondary to dehydration versus his deconditioned state secondary to his cancer. As per daughter his systolic blood pressure is always in the 90s to high 80s. Continues to be on the low normal side and I have given him a few boluses today. We will continue to monitor and if necessary we may have to move to the ICU to try on pressors. We will need to discuss this with the daughter Thania before we do this. (7) Complicated urinary tract infection Is this a current diagnosis for this admission?: Yes Plan: He has nephrostomy tube and he is anuric. His culture is growing Citrobacter and Pseudomonas. We will start him on cefepime and it is sensitive. - Plan Summary Plan Summary: Overall he seems to have a poor prognosis and likely a candidate for hospice at some point. Family is still in the process of deciding.
[2018-11-04 05:46] LABS: HEMATOCRIT 27.2 % (37.9-51.0); HEMOGLOBIN 9.2 g/dL (13.5-17.0); MEAN CORPUSCULAR HEMOGLOBIN 26.8 pg (27.0-33.4); MEAN CORPUSCULAR HGB CONC 33.7 g/dL (32.0-36.0); MEAN CORPUSCULAR VOLUME 80 fl (80-97); RED BLOOD COUNT 3.41 10^6/uL (4.35-5.55); RED CELL DISTRIBUTION WIDTH 18.2 % (11.5-14.0)
[2018-11-04 05:54] LABS: ANION GAP 6 (5-19); BLOOD UREA NITROGEN 21 mg/dL (7-20); CALCIUM 8.4 mg/dL (8.4-10.2); CARBON DIOXIDE 21 mmol/L (22-30); CHLORIDE 104 mmol/L (98-107); GLUCOSE 77 mg/dL (75-110); POTASSIUM 3.5 mmol/L (3.6-5.0)
[2018-11-04 06:19] LABS: PLATELET COUNT 33 10^3/uL (150-450); WHITE BLOOD COUNT 2.7 10^3/uL (4.0-10.5)
[2018-11-04 06:24] LABS: ABSOLUTE LYMPHOCYTES# (MANUAL) 0.7 10^3/uL (0.5-4.7); ABSOLUTE MONOCYTES # (MANUAL) 0.1 10^3/uL (0.1-1.4); ABSOLUTE NEUTROPHILS# (MANUAL) 1.9 10^3/uL (1.7-8.2); BASOPHILS % (MANUAL) 0 % (0-2); EOSINOPHILS % (MANUAL) 1 % (0-6); LYMPHOCYTES % (MANUAL) 26 % (13-45); MONOCYTES % (MANUAL) 3 % (3-13); NUCLEATED RED BLOOD CELLS 3 /100 WBC (0); SEGMENTED NEUTROPHILS % (MAN) 55 % (42-78); TOTAL CELLS COUNTED 100
[2018-11-04 06:27] LABS: ANISOCYTOSIS 2+; BAND NEUTROPHILS % (MANUAL) 15 % (3-5); PLATELET COMMENT DECREASED; POIKILOCYTOSIS SLIGHT; TEAR DROP CELLS SLIGHT; TOXIC VACUOLATION PRESENT
--- NOTE | 2018-11-04 08:43 | PDOC PROGRESS REPORT ---
Subjective Progress Note for:: 11/04/18 Subjective:: Patient without complaints today. ROS: Denies any pain. Denies any dyspnea. Reason For Visit: UTI ARF ANEMIA TERMINAL PROSTATE CANCER Physical Exam Vital Signs: Temp Pulse Resp BP Pulse Ox 98.3 F 82 19 87/54 L 98 11/03/18 22:57 11/03/18 22:57 11/03/18 22:57 11/03/18 22:57 11/03/18 22:57 Intake & Output 11/03/18 11/04/18 11/05/18 06:59 06:59 06:59 Intake Total 2526 1690 Output Total 975 Balance 2526 715 Weight 72.8 kg 83.4 kg General appearance: PRESENT: thin Head exam: PRESENT: normocephalic Respiratory exam: PRESENT: clear to auscultation darrel, unlabored Cardiovascular exam: PRESENT: RRR GI/Abdominal exam: PRESENT: soft. ABSENT: tenderness Extremities exam: ABSENT: pedal edema Neurological exam: PRESENT: alert, awake Psychiatric exam: PRESENT: appropriate affect Skin exam: PRESENT: normal color Results Laboratory Results: 11/04/18 05:20 11/04/18 05:20 11/03/18 11/03/18 11/03/18 10:38 10:38 10:38 WBC RBC Hgb Hct MCV MCH MCHC RDW Plt Count Seg Neutrophils % Lymphocytes % Monocytes % Eosinophils % Basophils % Absolute Neutrophils Absolute Lymphocytes Absolute Monocytes Absolute Eosinophils Absolute Basophils Retic Count (auto) 0.63 L Absolute Retic 0.023 L Sodium Potassium Chloride Carbon Dioxide Anion Gap BUN Creatinine Est GFR ( Amer) Est GFR (Non-Af Amer) Glucose Calcium Magnesium Iron 31.1 L TIBC 196 L % Saturation 16 Ferritin 521.00 H Prostate Specific Ag > 2000.000 H Vitamin B12 967.0 H Folate 3.57 11/04/18 11/04/18 05:20 05:20 WBC 2.7 L D RBC 3.41 L Hgb 9.2 L Hct 27.2 L MCV 80 MCH 26.8 L MCHC 33.7 RDW 18.2 H Plt Count 33 L Seg Neutrophils % Not Reportable Lymphocytes % Not Reportable Monocytes % Not Reportable Eosinophils % Not Reportable Basophils % Not Reportable Absolute Neutrophils Not Reportable Absolute Lymphocytes Not Reportable Absolute Monocytes Not Reportable Absolute Eosinophils Not Reportable Absolute Basophils Not Reportable Retic Count (auto) Absolute Retic Sodium 131.0 L Potassium 3.5 L Chloride 104 Carbon Dioxide 21 L Anion Gap 6 BUN 21 H Creatinine 1.20 Est GFR ( Amer) > 60 Est GFR (Non-Af Amer) > 60 Glucose 77 Calcium 8.4 Magnesium 1.9 Iron TIBC % Saturation Ferritin Prostate Specific Ag Vitamin B12 Folate 10/31/18 22:10 Clean Catch Midstream Urine Culture - Final Citrobacter Freundii Pseudomonas Aeruginosa Impressions: Chest X-Ray 10/31/18 21:30 IMPRESSION: No acute cardiopulmonary disease. copyright 2011 [employer]- All Rights Reserved Assessment & Plan - Diagnosis (1) Prostate cancer Is this a current diagnosis for this admission?: Yes Plan: All treatment has been on hold. (2) Anemia Qualifiers: Anemia type: unspecified type Qualified Code(s): D64.9 - Anemia, unspecifi ed Is this a current diagnosis for this admission?: Yes (3) Thrombocytopenia Is this a current diagnosis for this admission?: Yes Plan: All 3 cell lines continue to decrease. Work-up for other cause has been negative. His Iron, B12, folate are all normal. The pancytopenia is most likely marrow involvement by the prostate cancer. Sadly, I do not believe this will improve. He remains at risk for bleeding and infections. I have tried to discuss this with patient. He seems to understand. Family is not available for discussion today. One Daughter is asleep at bedside, but does not awaken for the discussion. (4) Dehydration Is this a current diagnosis for this admission?: Yes (5) Thrush, oral Is this a current diagnosis for this admission?: Yes Plan: On Diflucan. (6) Weight loss Is this a current diagnosis for this admission?: Yes - Plan Summary Plan Summary: I still recommend home with Hospice to see how he will do over the next few weeks. He still has not stated what his code status is. I will continue to work with patient and family to determine his full wishes, but I believe further treatment for the prostate cancer may not be possible.
[2018-11-04] MEDS: CEFEPIME 1 GM/D5W RTU 1 GM/50 ML RTUPB IV SCH (09:36)
[2018-11-04] MEDS: FLUCONAZOLE 100 MG TABLET PO SCH (09:36)
[2018-11-04] MEDS: DOCUSATE SODIUM 100 MG CAPSULE PO SCH ×2 (09:37→17:53)
[2018-11-04 11:02] LABS: PATH REVIEW PATHOLOGIST REVIEWED
[2018-11-04] MEDS ORDERED: NORMAL SALINE 1000 ML 500 ML IV ONE (11:50)
--- NOTE | 2018-11-04 11:59 | PDOC PROGRESS REPORT ---
Subjective Progress Note for:: 11/04/18 Subjective:: I spoke with daughter Kanwal at bedside regarding patient. Patient looks comfortable in the bed but frail and weak. He can answer but barely. He denies any chest pain, shortness of breath, abdominal pain, nausea/vomiting or dizziness. Tells me that he is very weak and everything hurts. He cannot point out where exactly hurts but that it hurts. I try to discuss with him about his cancer but he seems to get upset every time I bring it up. I asked daughter at bedside what she wants me to do and she wants me to continue with IV fluids antibiotics and blood transfusion as needed. She tells me she understands that her father is not doing well but I am not sure if she completely understands the gravity of the situation. Reason For Visit: UTI ARF ANEMIA TERMINAL PROSTATE CANCER Physical Exam Vital Signs: Temp Pulse Resp BP Pulse Ox 97.7 F 82 14 78/47 L 99 11/04/18 08:05 11/04/18 08:05 11/04/18 08:05 11/04/18 08:05 11/04/18 08:05 Intake & Output 11/03/18 11/04/18 11/05/18 06:59 06:59 06:59 Intake Total 2526 1690 50 Output Total 975 Balance 2526 715 50 Weight 160 lb 7.944 oz 183 lb 13.848 oz Results Laboratory Results: 11/04/18 05:20 11/04/18 05:20 11/03/18 11/03/18 11/04/18 10:38 10:38 05:20 WBC 2.7 L D RBC 3.41 L Hgb 9.2 L Hct 27.2 L MCV 80 MCH 26.8 L MCHC 33.7 RDW 18.2 H Plt Count 33 L Seg Neutrophils % Not Reportable Lymphocytes % Not Reportable Monocytes % Not Reportable Eosinophils % Not Reportable Basophils % Not Reportable Absolute Neutrophils Not Reportable Absolute Lymphocytes Not Reportable Absolute Monocytes Not Reportable Absolute Eosinophils Not Reportable Absolute Basophils Not Reportable Sodium Potassium Chloride Carbon Dioxide Anion Gap BUN Creatinine Est GFR ( Amer) Est GFR (Non-Af Amer) Glucose Calcium Magnesium Iron 31.1 L TIBC 196 L % Saturation 16 Ferritin 521.00 H Prostate Specific Ag > 2000.000 H Vitamin B12 967.0 H Folate 3.57 11/04/18 05:20 WBC RBC Hgb Hct MCV MCH MCHC RDW Plt Count Seg Neutrophils % Lymphocytes % Monocytes % Eosinophils % Basophils % Absolute Neutrophils Absolute Lymphocytes Absolute Monocytes Absolute Eosinophils Absolute Basophils Sodium 131.0 L Potassium 3.5 L Chloride 104 Carbon Dioxide 21 L Anion Gap 6 BUN 21 H Creatinine 1.20 Est GFR ( Amer) > 60 Est GFR (Non-Af Amer) > 60 Glucose 77 Calcium 8.4 Magnesium 1.9 Iron TIBC % Saturation Ferritin Prostate Specific Ag Vitamin B12 Folate 10/31/18 22:10 Clean Catch Midstream Urine Culture - Final Citrobacter Freundii Pseudomonas Aeruginosa Impressions: Chest X-Ray 10/31/18 21:30 IMPRESSION: No acute cardiopulmonary disease. copyright 2011 [employer]- All Rights Reserved Assessment & Plan - Diagnosis (1) Dehydration Is this a current diagnosis for this admission?: Yes Plan: Continue with IV fluids (2) Metastatic cancer Is this a current diagnosis for this admission?: Yes Plan: See plan for prostate cancer (3) Cachexia Is this a current diagnosis for this admission?: Yes Plan: Likely secondary to cancer with metastases. (4) Prostate cancer Is this a current diagnosis for this admission?: Yes Plan: Spoke with Dr. Castro and she feels that at this time any type of treatment is futile and will not benefit patient. She believed that he is too weak and the cancer is in the bone marrow. His prognosis is very poor and I feel that family is not comprehending the extent of his disease. I am afraid that patient will deteriorate very quickly within the next 24-48 hours and may even . I tried to hold his conversation with the family and although they tell me they understand I do not feel they completely agree that their father is dying. Per daughter their father tells them that he wants everything done but I do not think patient is in the right mindset to make that decision. Family is still on the fence about deciding on hospice versus continue on current level of care. In the last few days after try to hold this discussion with the daughters multiple times and it seems there is a discrepancy between the 2 daughters and their decisions. One daughter states that she understand the father is dying and he needs to be hospice, and this is came. The other daughter believes that she must do everything for her father because her father wants everything to be done, this is daughter Kanwal. (5) Acute blood loss anemia Is this a current diagnosis for this admission?: Yes Plan: Hemoglobin was less than 7 and he was transfused 2 units of blood. Hemoglobin is again starting to drop and today it is 9. I am not so sure where his bleeding is but his CT of the abdomen did show questionable hemorrhage into the bladder. He has no signs of acute bleed at this time. Surgery evaluated patient and believe that he needs urology consultation but family has declined at this time. Unfortunately I have nothing to offer them at this time since they do not want him to be transferred. I have revisited this concept and they still persist on saying that they will keep him here. (6) Hypotension Is this a current diagnosis for this admission?: Yes Plan: Likely secondary to dehydration versus his deconditioned state secondary to his cancer. As per daughter his systolic blood pressure is always in the 90s to high 80s. He continues to be hypotensive and I have discussed about moving into the ICU but at this time they are reluctant and wants to discontinue with IV fluids and antibiotics. I feel that his overall prognosis is very poor and his hypotension will make matters worse. I have tried to relay this again and again to the daughters and I feel that they just do not understand. (7) Complicated urinary tract infection Is this a current diagnosis for this admission?: Yes Plan: He has nephrostomy tube and he is anuric. His culture is growing Citrobacter and Pseudomonas. He is started on cefepime and it is sensitive to the organisms growing. (8) Hyponatremia Is this a current diagnosis for this admission?: Yes Plan: Likely secondary to dehydration and he is on IV normal saline. (9) Hypokalemia Is this a current diagnosis for this admission?: Yes Plan: We will continue to replete.
[2018-11-04] MEDS ORDERED: POTASSIUM CHLORIDE 10 MEQ CAPSULE.ER PO ONE (12:00)
[2018-11-04] MEDS: VANCOMYCIN HCL INJ 500 MG VIAL PO SCH (23:24)
[2018-11-05] MEDS: VANCOMYCIN HCL INJ 500 MG VIAL PO SCH ×4 (05:18→23:33)
[2018-11-05] MEDS: FLUCONAZOLE 100 MG TABLET PO SCH (10:44)
[2018-11-05] MEDS: CEFEPIME 1 GM/D5W RTU 1 GM/50 ML RTUPB IV SCH (10:44)
[2018-11-05] MEDS: DOCUSATE SODIUM 100 MG CAPSULE PO SCH ×2 (10:46→18:02)
--- NOTE | 2018-11-05 16:50 | PDOC PROGRESS REPORT ---
Subjective Progress Note for:: 11/05/18 Subjective:: Patient without any new complaints. However, his daughter has multiple complaints today. I have again tried to discuss his care, prognosis, and treatment. However, she tells me very clearly that she will "not accept the fact that all of this is due to the cancer." Reason For Visit: UTI ARF ANEMIA TERMINAL PROSTATE CANCER Physical Exam Vital Signs: Temp Pulse Resp BP Pulse Ox 97.7 F 80 19 95/55 L 98 11/04/18 23:31 11/04/18 23:31 11/04/18 23:31 11/04/18 23:31 11/04/18 23:31 Intake & Output 11/04/18 11/05/18 11/06/18 06:59 06:59 06:59 Intake Total 1690 700 50 Output Total 975 0 Balance 715 700 50 Weight 83.4 kg 73.5 kg General appearance: PRESENT: thin Head exam: PRESENT: normocephalic Respiratory exam: PRESENT: clear to auscultation darrel, unlabored Cardiovascular exam: PRESENT: RRR GI/Abdominal exam: PRESENT: soft, tenderness Extremities exam: ABSENT: pedal edema Neurological exam: PRESENT: alert, awake Psychiatric exam: PRESENT: appropriate affect Skin exam: PRESENT: normal color Results Laboratory Results: 11/04/18 05:20 11/04/18 05:20 11/02/18 12:00 Nephrostomy Tube - Left Urine Culture - Final Pseudomonas Aeruginosa Citrobacter Freundii Impressions: Chest X-Ray 10/31/18 21:30 IMPRESSION: No acute cardiopulmonary disease. 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 (2) Anemia Qualifiers: Anemia type: unspecified type Qualified Code(s): D64.9 - Anemia, unspecifi ed Is this a current diagnosis for this admission?: Yes Plan: He now has PANCYTOPENIA and search for a cause of the pancytopenia has been negative, except the possibility of infection or cancer. I have again explained that no further treatment for the prostate cancer is possible without improvement in all 3 cell lines. (3) Thrombocytopenia Is this a current diagnosis for this admission?: Yes Plan: I do NOT believe that this is TTP or ITP. This is most likely bone marrow suppression from the cancer. Patient's daughter asks me to give him a shot of Nplate today, like her mother gets and this should take care of it. I have again tried to explain that this will not work, but she does not wish to accept this. (4) Dehydration Is this a current diagnosis for this admission?: Yes (5) Thrush, oral Is this a current diagnosis for this admission?: Yes (6) Weight loss Is this a current diagnosis for this admission?: Yes - Plan Summary Plan Summary: Patient's family requests that Dr. Resendez be consulted as "we know he comes here to [place]." They are requesting that his nephrostomy tubes be removed. I have called Dr. Resendez's office. He will be out of the office for the next 2 weeks. However, his associates would be happy to see the patient if he is transferred to [facility]. Patient's family again refuse to discuss having him transferred to another facility for this. I also again suggested that he be discharged home with Hospice, as previously discussed so that all of these things can be arranged as an outpatient. Again, family refuses.
--- NOTE | 2018-11-05 20:29 | PDOC PROGRESS REPORT ---
Subjective Progress Note for:: 11/05/18 Subjective:: Patient feels tired, otherwise no complaints. 2 daughters at bedside. One of them, Criss, reports understanding as well as poor prognosis. The other things the still much hope, stating she has been reading on [employer] different treatment for alcohol, including for platelets. Patient denies fever or chills, no chest pain or shortness of breath or palpitations. Reason For Visit: UTI ARF ANEMIA TERMINAL PROSTATE CANCER Physical Exam Vital Signs: Temp Pulse Resp BP Pulse Ox 97.8 F 83 16 113/58 L 100 11/05/18 12:21 11/05/18 12:21 11/05/18 12:21 11/05/18 12:21 11/05/18 12:21 Intake & Output 11/04/18 11/05/18 11/06/18 06:59 06:59 06:59 Intake Total 1690 700 600 Output Total 975 0 Balance 715 700 600 Weight 83.4 kg 73.5 kg General appearance: PRESENT: no acute distress, other - Frail and ill-appearing. Cachectic Head exam: PRESENT: atraumatic, normocephalic Eye exam: PRESENT: EOMI. ABSENT: conjunctival injection, scleral icterus Ear exam: PRESENT: normal external ear exam Mouth exam: PRESENT: moist, tongue midline Neck exam: ABSENT: tracheal deviation Respiratory exam: PRESENT: decreased breath sounds - Decreased breath sound bilaterally most likely due to poor inspiratory effort, symmetrical Cardiovascular exam: PRESENT: +S1, +S2 Pulses: PRESENT: +2 pedal pulses bilateral GI/Abdominal exam: PRESENT: normal bowel sounds, soft. ABSENT: tenderness Gentrourinary exam: PRESENT: other - Bilateral nephrostomy tubes present Extremities exam: ABSENT: pedal edema Neurological exam: PRESENT: awake, oriented to person, oriented to place, CN II- XII grossly intact Skin exam: PRESENT: dry, warm Results Laboratory Results: 11/04/18 05:20 11/04/18 05:20 11/02/18 12:00 Nephrostomy Tube - Left Urine Culture - Final Pseudomonas Aeruginosa Citrobacter Freundii Impressions: Chest X-Ray 10/31/18 21:30 IMPRESSION: No acute cardiopulmonary disease. copyright 2010 [employer]- All Rights Reserved Assessment & Plan - Diagnosis (1) Acute blood loss anemia Is this a current diagnosis for this admission?: Yes (3) Dehydration Is this a current diagnosis for this admission?: Yes (4) Metastatic cancer Is this a current diagnosis for this admission?: Yes (5) Prostate cancer Is this a current diagnosis for this admission?: Yes (6) Thrombocytopenia Is this a current diagnosis for this admission?: Yes - Plan Summary Plan Summary: Continue current management, including cefepime for complicated UTI. We will continue to monitor blood products and replete as needed. Oncology follow-up appreciated.
[2018-11-06] MEDS: VANCOMYCIN HCL INJ 500 MG VIAL PO SCH ×3 (05:17→17:04)
[2018-11-06 07:00] LABS: HEMATOCRIT 28.4 % (37.9-51.0); HEMOGLOBIN 9.5 g/dL (13.5-17.0); MEAN CORPUSCULAR HEMOGLOBIN 26.4 pg (27.0-33.4); MEAN CORPUSCULAR HGB CONC 33.3 g/dL (32.0-36.0); MEAN CORPUSCULAR VOLUME 79 fl (80-97); RED BLOOD COUNT 3.59 10^6/uL (4.35-5.55); RED CELL DISTRIBUTION WIDTH 18.3 % (11.5-14.0); WHITE BLOOD COUNT 2.7 10^3/uL (4.0-10.5)
[2018-11-06 07:10] LABS: ANION GAP 6 (5-19); BLOOD UREA NITROGEN 15 mg/dL (7-20); CALCIUM 8.6 mg/dL (8.4-10.2); CARBON DIOXIDE 21 mmol/L (22-30); CHLORIDE 101 mmol/L (98-107); GLUCOSE 70 mg/dL (75-110); SODIUM 128.3 mmol/L (137-145)
[2018-11-06 07:18] LABS: POTASSIUM 2.9 mmol/L (3.6-5.0)
[2018-11-06 07:53] LABS: ABSOLUTE LYMPHOCYTES# (MANUAL) 0.8 10^3/uL (0.5-4.7); ABSOLUTE MONOCYTES # (MANUAL) 0.2 10^3/uL (0.1-1.4); ABSOLUTE NEUTROPHILS# (MANUAL) 1.7 10^3/uL (1.7-8.2); BAND NEUTROPHILS % (MANUAL) 4 % (3-5); BASOPHILS % (MANUAL) 1 % (0-2); EOSINOPHILS % (MANUAL) 1 % (0-6); LYMPHOCYTES % (MANUAL) 24 % (13-45); METAMYELOCYTES % (MANUAL) 1 % (0); MONOCYTES % (MANUAL) 7 % (3-13); SEGMENTED NEUTROPHILS % (MAN) 58 % (42-78); TOTAL CELLS COUNTED 100
[2018-11-06 07:56] LABS: ANISOCYTOSIS 2+; BURR CELLS SLIGHT; HYPOCHROMASIA SLIGHT; OVALOCYTES 1+; PLATELET COMMENT DECREASED; POIKILOCYTOSIS 1+; SCHISTOCYTES SLIGHT; TEAR DROP CELLS SLIGHT; TOXIC GRANULATION 1+; TOXIC VACUOLATION PRESENT
[2018-11-06 07:58] LABS: PLATELET COUNT 25 10^3/uL (150-450)
[2018-11-06] MEDS ORDERED: POTASSIUM CHLORIDE 20 MEQ/15 ML UDCUP PO SCH (10:00)
[2018-11-06] MEDS: POTASSIUM CHLORIDE 20 MEQ/15 ML UDCUP PO SCH ×2 (11:43→17:05)
[2018-11-06] MEDS: CEFEPIME 1 GM/D5W RTU 1 GM/50 ML RTUPB IV SCH (11:43)
[2018-11-06] MEDS: DOCUSATE SODIUM 100 MG CAPSULE PO SCH ×2 (12:04→17:05)
--- NOTE | 2018-11-06 20:10 | PDOC PROGRESS REPORT ---
Subjective Progress Note for:: 11/06/18 Subjective:: Patient continues to feel tired, otherwise no complaints. Son-in-law at bedside. Patient denies bleeding from rectum or or GI. Denies fever or chills, no chest pain or shortness of breath or palpitations. Reason For Visit: UTI ARF ANEMIA TERMINAL PROSTATE CANCER Physical Exam Vital Signs: Temp Pulse Resp BP Pulse Ox 98.5 F 85 13 98/59 L 97 11/06/18 10:00 11/06/18 10:00 11/06/18 10:00 11/06/18 10:00 11/06/18 10:00 Intake & Output 11/05/18 11/06/18 11/07/18 06:59 06:59 06:59 Intake Total 700 600 50 Output Total 0 Balance 700 600 50 Weight 73.5 kg 78.4 kg General appearance: PRESENT: no acute distress, other - Frail and ill-appearing. Cachectic Head exam: PRESENT: atraumatic, normocephalic Eye exam: PRESENT: EOMI. ABSENT: conjunctival injection, scleral icterus Ear exam: PRESENT: normal external ear exam Mouth exam: PRESENT: moist, tongue midline Neck exam: ABSENT: tracheal deviation Respiratory exam: PRESENT: decreased breath sounds - Decreased breath sound bilaterally most likely due to poor inspiratory effort, symmetrical Cardiovascular exam: PRESENT: +S1, +S2 Pulses: PRESENT: +2 pedal pulses bilateral GI/Abdominal exam: PRESENT: normal bowel sounds, soft. ABSENT: tenderness Gentrourinary exam: PRESENT: other - Bilateral nephrostomy tubes present Extremities exam: ABSENT: pedal edema Neurological exam: PRESENT: awake, oriented to person, oriented to place, CN II- XII grossly intact Skin exam: PRESENT: dry, warm Results Laboratory Results: 11/06/18 06:45 11/06/18 06:45 11/06/18 11/06/18 06:45 06:45 WBC 2.7 L RBC 3.59 L Hgb 9.5 L Hct 28.4 L MCV 79 L MCH 26.4 L MCHC 33.3 RDW 18.3 H Plt Count 25 L* Seg Neutrophils % Not Reportable Lymphocytes % Not Reportable Monocytes % Not Reportable Eosinophils % Not Reportable Basophils % Not Reportable Absolute Neutrophils Not Reportable Absolute Lymphocytes Not Reportable Absolute Monocytes Not Reportable Absolute Eosinophils Not Reportable Absolute Basophils Not Reportable Sodium 128.3 L Potassium 2.9 L* Chloride 101 Carbon Dioxide 21 L Anion Gap 6 BUN 15 Creatinine 1.11 Est GFR ( Amer) > 60 Est GFR (Non-Af Amer) > 60 Glucose 70 L Calcium 8.6 11/01/18 01:53 Blood Blood Culture - Final NO GROWTH IN 5 DAYS 10/31/18 22:10 Blood Blood Culture - Final NO GROWTH IN 5 DAYS 11/02/18 12:00 Nephrostomy Tube - Left Urine Culture - Final Pseudomonas Aeruginosa Citrobacter Freundii Impressions: Chest X-Ray 10/31/18 21:30 IMPRESSION: No acute cardiopulmonary disease. copyright 2010 [employer]- All Rights Reserved Assessment & Plan - Diagnosis (1) Acute blood loss anemia Is this a current diagnosis for this admission?: Yes (3) Dehydration Is this a current diagnosis for this admission?: Yes (4) Metastatic cancer Is this a current diagnosis for this admission?: Yes (5) Prostate cancer Is this a current diagnosis for this admission?: Yes (6) Thrombocytopenia Is this a current diagnosis for this admission?: Yes - Plan Summary Plan Summary: Continue current management, including cefepime for complicated UTI. We will continue to monitor blood products and replete as needed. Platelet does continue to trend down, he may need platelet transfusions if platelets less than 20,000 or evidence of bleeding. Please also see oncology note. Oncology thinks patient with poor prognosis and he should be hospice at this point, but one daughter particularly remains hopeful. Continue to discuss with family and support them and the patient.
[2018-11-07] MEDS: VANCOMYCIN HCL INJ 500 MG VIAL PO SCH ×5 (00:03→23:53)
[2018-11-07 07:25] LABS: ANION GAP 6 (5-19); BLOOD UREA NITROGEN 12 mg/dL (7-20); CALCIUM 8.8 mg/dL (8.4-10.2); CARBON DIOXIDE 22 mmol/L (22-30); CHLORIDE 103 mmol/L (98-107); GLUCOSE 79 mg/dL (75-110); POTASSIUM 3.8 mmol/L (3.6-5.0); SODIUM 131.3 mmol/L (137-145)
[2018-11-07 07:40] LABS: ABSOLUTE LYMPHOCYTES (AUTO) 0.9 10^3/uL (0.5-4.7); ABSOLUTE MONOCYTES (AUTO) 0.2 10^3/uL (0.1-1.4); ABSOLUTE NEUT (AUTO) 2.3 10^3/uL (1.7-8.2); BASOPHILS % (AUTO) 0.5 % (0-2); EOSINOPHILS % (AUTO) 0.5 % (0-6); HEMATOCRIT 27.9 % (37.9-51.0); HEMOGLOBIN 9.5 g/dL (13.5-17.0); LYMPHOCYTES % (AUTO) 25.4 % (13-45); MEAN CORPUSCULAR HEMOGLOBIN 26.9 pg (27.0-33.4); MEAN CORPUSCULAR VOLUME 79 fl (80-97); RED BLOOD COUNT 3.53 10^6/uL (4.35-5.55); RED CELL DISTRIBUTION WIDTH 18.1 % (11.5-14.0); SEGMENTED NEUTROPHILS % (AUTO) 67.6 % (42-78); TOTAL CELLS COUNTED % (AUTO) 100 %; WHITE BLOOD COUNT 3.4 10^3/uL (4.0-10.5)
[2018-11-07 08:41] LABS: PLATELET COUNT 20 10^3/uL (150-450)
--- NOTE | 2018-11-07 10:19 | PDOC PROGRESS REPORT ---
Subjective Progress Note for:: 11/07/18 Subjective:: Patient was seen and examined. Patient is laying in bed comfortable. He is cachectic. He is alert and oriented. He knows that he has cancer. He did not offer any complaints. Reason For Visit: UTI ARF ANEMIA TERMINAL PROSTATE CANCER Physical Exam Vital Signs: Temp Pulse Resp BP Pulse Ox 98.1 F 69 16 106/52 L 97 11/07/18 00:20 11/07/18 00:20 11/07/18 00:20 11/07/18 00:20 11/07/18 00:20 Intake & Output 11/06/18 11/07/18 11/08/18 06:59 06:59 06:59 Intake Total 600 550 Output Total 25 Balance 600 525 Weight 172 lb 13.478 oz 193 lb 1.999 oz General appearance: PRESENT: no acute distress, thin Head exam: PRESENT: atraumatic Eye exam: ABSENT: conjunctival injection Ear exam: ABSENT: bleeding, drainage Mouth exam: PRESENT: neck supple Respiratory exam: PRESENT: clear to auscultation darrel. ABSENT: accessory muscle use, rhonchi, wheezes Cardiovascular exam: PRESENT: RRR. ABSENT: systolic murmur GI/Abdominal exam: PRESENT: soft. ABSENT: ascites, mass, tenderness Extremities exam: ABSENT: pedal edema Neurological exam: PRESENT: alert, awake, oriented to person, oriented to place, oriented to time, oriented to situation Psychiatric exam: ABSENT: agitated, anxious Results Laboratory Results: 11/07/18 06:20 11/07/18 06:20 11/07/18 11/07/18 06:20 06:20 WBC 3.4 L RBC 3.53 L Hgb 9.5 L Hct 27.9 L MCV 79 L MCH 26.9 L MCHC 34.0 RDW 18.1 H Plt Count 20 L* Seg Neutrophils % 67.6 Lymphocytes % 25.4 Monocytes % 6.0 Eosinophils % 0.5 Basophils % 0.5 Absolute Neutrophils 2.3 Absolute Lymphocytes 0.9 Absolute Monocytes 0.2 Absolute Eosinophils 0.0 Absolute Basophils 0.0 Sodium 131.3 L Potassium 3.8 Chloride 103 Carbon Dioxide 22 Anion Gap 6 BUN 12 Creatinine 1.00 Est GFR ( Amer) > 60 Est GFR (Non-Af Amer) > 60 Glucose 79 Calcium 8.8 Impressions: Chest X-Ray 10/31/18 21:30 IMPRESSION: No acute cardiopulmonary disease. copyright 2010 [employer]- All Rights Reserved Assessment & Plan - Diagnosis (1) Thrombocytopenia Is this a current diagnosis for this admission?: Yes Plan: Blood count is 20,000 today. We will defer transfusion to oncology. (2) Anemia Qualifiers: Anemia type: unspecified type Qualified Code(s): D64.9 - Anemia, unspecified Is this a current diagnosis for this admission?: Yes Plan: Hemoglobin stable. Continue to monitor. (3) Cachexia Is this a current diagnosis for this admission?: Yes Plan: Nutrition consult (4) Metastatic cancer Is this a current diagnosis for this admission?: Yes Plan: Prostate cancer metastasis to the bone possible to the bladder. Oncology is following. (5) C. difficile diarrhea Is this a current diagnosis for this admission?: Yes Plan: Treated with oral Vanco. Improving. - Plan Summary Plan Summary: Nephrostomy tubes are in the renal parenchyma. There is bilateral mild to moderate hydro-ureter. There is mass versus hemorrhage in the bladder. Interestingly the patient renal function is normal. Apparently he and his family are refusing hospice and even transfer to another facility for urology consultation. There is very little for me to do for him here in this hospital. We will try to discuss with the family later for able.
[2018-11-07] MEDS: CEFEPIME 1 GM/D5W RTU 1 GM/50 ML RTUPB IV SCH (10:52)
[2018-11-07] MEDS: DOCUSATE SODIUM 100 MG CAPSULE PO SCH ×2 (10:58→18:22)
--- NOTE | 2018-11-07 11:31 | PDOC PROGRESS REPORT ---
Subjective Progress Note for:: 11/07/18 Subjective:: Patient states that he continues to feel better with current treatment. Family is not present today. He denies any new problems. He states that the nurses are taking good care of him and he knows that there is nothing more that can be done for him here. Reason For Visit: UTI ARF ANEMIA TERMINAL PROSTATE CANCER Physical Exam Vital Signs: Temp Pulse Resp BP Pulse Ox 98.1 F 69 16 106/52 L 97 11/07/18 00:20 11/07/18 00:20 11/07/18 00:20 11/07/18 00:20 11/07/18 00:20 Intake & Output 11/06/18 11/07/18 11/08/18 06:59 06:59 06:59 Intake Total 600 550 Output Total 25 Balance 600 525 Weight 78.4 kg 87.6 kg General appearance: PRESENT: no acute distress, thin Head exam: PRESENT: normocephalic Respiratory exam: PRESENT: unlabored Extremities exam: ABSENT: pedal edema Neurological exam: PRESENT: alert, awake Psychiatric exam: PRESENT: appropriate affect Skin exam: PRESENT: normal color Results Laboratory Results: 11/07/18 06:20 11/07/18 06:20 11/07/18 11/07/18 06:20 06:20 WBC 3.4 L RBC 3.53 L Hgb 9.5 L Hct 27.9 L MCV 79 L MCH 26.9 L MCHC 34.0 RDW 18.1 H Plt Count 20 L* Seg Neutrophils % 67.6 Lymphocytes % 25.4 Monocytes % 6.0 Eosinophils % 0.5 Basophils % 0.5 Absolute Neutrophils 2.3 Absolute Lymphocytes 0.9 Absolute Monocytes 0.2 Absolute Eosinophils 0.0 Absolute Basophils 0.0 Sodium 131.3 L Potassium 3.8 Chloride 103 Carbon Dioxide 22 Anion Gap 6 BUN 12 Creatinine 1.00 Est GFR ( Amer) > 60 Est GFR (Non-Af Amer) > 60 Glucose 79 Calcium 8.8 Impressions: Chest X-Ray 10/31/18 21:30 IMPRESSION: No acute cardiopulmonary disease. copyright 2010 [employer]- All Rights Reserved Assessment & Plan - Diagnosis (1) Prostate cancer Is this a current diagnosis for this admission?: Yes (2) Anemia Qualifiers: Anemia type: unspecified type Qualified Code(s): D64.9 - Anemia, unspecified Is this a current diagnosis for this admission?: Yes (3) Thrombocytopenia Is this a current diagnosis for this admission?: Yes (4) Dehydration Is this a current diagnosis for this admission?: Yes (5) Thrush, oral Is this a current diagnosis for this admission?: Yes (6) Weight loss Is this a current diagnosis for this admission?: Yes - Plan Summary Plan Summary: I had a long discussion with the patient today. He understands that his blood counts remain critically low and that I do not expect them to improve as long as he is here in the hospital. We again discussed the fact that his urologist is at [facility] and we would need to transfer him there for more aggressive care for the kidneys/nephrostomy tubes. I have explained that there is nothing further we can do here at this hospital and have again discussed transferring him to [facility], or discharging him home with Hospice support so that he may then see urology as outpatient. Patient requests to be discharged home with Hospice. However, he understands that his family has been very resistant to this idea. He states that he will speak with them and tell them his wishes. I would not transfuse PLT unless there is active bleeding. Again, I believe that the pancytopenia is most likely due to marrow infiltration with cancer. This is not expected to improve. If his pancytopenia is due to underlying infection or antibiotics, again I do not expect this to improve without urology intervention for the nephrostomy tubes. I would continue palliative treatment only and change to PO antibiotics in preparation for discharge home with Hospice, as per patient's wishes. He has met with [facility] and they have agreed to accept him on discharge. I will sign off. Please call if needed. 35 minutes was spent with patient
[2018-11-08] MEDS: VANCOMYCIN HCL INJ 500 MG VIAL PO SCH ×4 (02:32→18:13)
[2018-11-08 05:50] LABS: HEMATOCRIT 27.4 % (37.9-51.0); HEMOGLOBIN 9.3 g/dL (13.5-17.0); MEAN CORPUSCULAR HEMOGLOBIN 26.7 pg (27.0-33.4); MEAN CORPUSCULAR VOLUME 79 fl (80-97); RED BLOOD COUNT 3.49 10^6/uL (4.35-5.55); RED CELL DISTRIBUTION WIDTH 18.4 % (11.5-14.0); WHITE BLOOD COUNT 3.7 10^3/uL (4.0-10.5)
[2018-11-08 06:18] LABS: BLOOD UREA NITROGEN 11 mg/dL (7-20); CALCIUM 9.1 mg/dL (8.4-10.2); GLUCOSE 72 mg/dL (75-110); POTASSIUM 3.4 mmol/L (3.6-5.0)
[2018-11-08 06:24] LABS: CARBON DIOXIDE 24 mmol/L (22-30); CHLORIDE 104 mmol/L (98-107); SODIUM 130.6 mmol/L (137-145)
[2018-11-08 06:37] LABS: ANION GAP 3 (5-19)
[2018-11-08 06:47] LABS: PLATELET COUNT 19 10^3/uL (150-450)
[2018-11-08] MEDS: DOCUSATE SODIUM 100 MG CAPSULE PO SCH ×2 (09:00→17:32)
[2018-11-08] MEDS: CEFEPIME 1 GM/D5W RTU 1 GM/50 ML RTUPB IV SCH (09:06)
--- NOTE | 2018-11-08 10:23 | PDOC DISCHARGE SUMMARY ---
General - Admit/Disc Date/PCP Admission Date/Primary Care Provider: 11/01/18 01:17 YANICK WILSON MD Discharge Date: 11/08/18 - Discharge Diagnosis (1) Thrombocytopenia Is this a current diagnosis for this admission?: Yes (2) Anemia Is this a current diagnosis for this admission?: Yes (3) Cachexia Is this a current diagnosis for this admission?: Yes (4) Metastatic cancer Is this a current diagnosis for this admission?: Yes (5) C. difficile diarrhea Is this a current diagnosis for this admission?: Yes - Additional Information Resuscitation Status: Do Not Resuscitate Discharge Diet: As Tolerated Discharge Activity: Activity As Tolerated Prescriptions: Vancomycin HCl 250 mg PO QID 14 Days capsule Home Medications: Oxycodone HCl/Acetaminophen [Percocet 10-325 mg Tablet] 1 tab PO Q8 11/01/18 Vancomycin HCl 250 mg PO QID 14 Days capsule 11/08/18 History of Present Illness History of Present Illness: JOSE ANTONIO BURGOS SR is a 67 year old male with a past medical history of metastatic prostate cancer requiring bilateral nephrostomy tubes who has been discharged from oncology 4 months ago given terminal status however had not adequately arranged hospice. He had been living independently with the assistance of his daughter until he has recently had a rapid decline prompting evaluation in the emergency room where he is found to have encephalopathy, pancytopenia profound cachexia with a BMI of 13. Patient complains of widespread intractable pain. He receives IV morphine by emergency room provider and he is daughter at bedside reiterates the patient's wishes as DNR requesting hospice. He is referred to the hospitalist for pain management and coordination of hospice. Hospital Course Hospital Course: Received IV fluids. He was tested positive for C. difficile. Started on oral Vanco and should continue outpatient. Urine culture positive for Pseudomonas and Acinetobacter will discharge on Cipro. Nephrostomy tubes are in the renal parenchyma. There is bilateral mild to moderate hydro-ureter. There is mass versus hemorrhage in the bladder. Interestingly the patient renal function is normal. Apparently he and his family are refusing hospice and even transfer to another facility for urology consultation. He was seen by oncology during hospitalization. He eventually asked for hospice and wants to go home. We will discharged home with hospice. Physical Exam Vital Signs: Temp Pulse Resp BP Pulse Ox 98.1 F 78 16 96/50 L 99 11/08/18 07:20 11/08/18 07:20 11/08/18 07:20 11/08/18 07:20 11/08/18 07:20 Intake & Output 11/07/18 11/08/18 11/09/18 06:59 06:59 06:59 Intake Total 550 386 Output Total 25 10 10 Balance 525 376 -10 Weight 193 lb 1.999 oz General appearance: PRESENT: cooperative, thin Head exam: PRESENT: normocephalic Neck exam: ABSENT: meningismus, tenderness Respiratory exam: PRESENT: clear to auscultation darrel. ABSENT: accessory muscle use GI/Abdominal exam: PRESENT: normal bowel sounds, other - nephrostomy tube in place Neurological exam: PRESENT: alert, awake, oriented to person, oriented to place, oriented to time, oriented to situation Results Laboratory Results: 11/08/18 05:20 11/08/18 05:20 11/08/18 11/08/18 05:20 05:20 WBC 3.7 L RBC 3.49 L Hgb 9.3 L Hct 27.4 L MCV 79 L MCH 26.7 L MCHC 34.0 RDW 18.4 H Plt Count 19 L* Sodium 130.6 L Potassium 3.4 L Chloride 104 Carbon Dioxide 24 Anion Gap 3 L BUN 11 Creatinine 0.93 Est GFR ( Amer) > 60 Est GFR (Non-Af Amer) > 60 Glucose 72 L Calcium 9.1 Impressions: Chest X-Ray 10/31/18 21:30 IMPRESSION: No acute cardiopulmonary disease. copyright 2010 [employer]- All Rights Reserved Qualifiers - * PATIENT BEING DISCHARGED WITH ANY OF THE FOLLOWING DIAGNOSIS: No
[2018-11-08 11:33] VITALS: BP 99/51
[2018-11-08] MEDS ORDERED: FENTANYL 25 MCG/HR PATCH.TD72 TD ONE (13:00)
== END 2018-11-08 18:55 | disposition hospice, home (50) | DRG 809 ==
LOC: ER 21:06 → EH 11-01 01:17 → 4N 11-01 07:00
PROVIDERS: ADMIT Internal Medicine; ATTEND Internal Medicine
PROC: 30233N1 Transfusion of Nonautologous Red Blood Cells into Peripheral Vein, Percutaneous Approach (ICD-10-PCS; principal; 2018-11-01)
DX: D61.818 Other pancytopenia (principal); R64 Cachexia; N12 Tubulo-interstitial nephritis, not specified as acute or chronic; Z66 Do not resuscitate; N13.6 Pyonephrosis; E87.1 Hypo-osmolality and hyponatremia; A04.72 Enterocolitis due to Clostridium difficile, not specified as recurrent; Z68.1 Body mass index [BMI] 19.9 or less, adult; C61 Malignant neoplasm of prostate; D62 Acute posthemorrhagic anemia; D69.6 Thrombocytopenia, unspecified; B37.9 Candidiasis, unspecified; E87.6 Hypokalemia; R62.7 Adult failure to thrive; I10 Essential (primary) hypertension; E86.0 Dehydration; I95.9 Hypotension, unspecified; B96.5 Pseudomonas (aeruginosa) (mallei) (pseudomallei) as the cause of diseases classified elsewhere; B96.89 Other specified bacterial agents as the cause of diseases classified elsewhere; R53.1 Weakness; Z87.891 Personal history of nicotine dependence
CPT/HCPCS: 36415; 36430; 36591; 71045; 74176; 80048; 80053; 81001; 82607; 82728; 82746; 82803; 83540; 83550; 83605; 83735; 84134; 84153; 85025; 85027; 85045; 86850; 86900; 86901; 86920; 87040; 87086; 87088; 87186; 87493; 96361; 96365; 96366; 99291; J0692; J2270; J3370; J3490; J7030; J7040; J7120; P9016